=== PATIENT | female | born 1940 | race Caucasian/White ===

== ENCOUNTER 2022-10-11 15:03 | Inpatient (IN) ==
[2022-10-11] MEDS ORDERED: dilTIAZem HCl 5 MG/ML 5 ML VIAL IV STA (15:25)
[2022-10-11] MEDS ORDERED: SODIUM CHLORIDE 0.9% 1000ML 1,000 ML IV ONE (15:25)
--- NOTE | 2022-10-11 15:27 | Emergency Department Note ---
Impression & Plan Atrial fibrillation with rapid ventricular response ADMIT ED Provider Note HPI: The patient is an 82-year-old female who presents the emergency department with a chief complaint of chest pressure and palpitations. Patient states she began experiencing this sensation about 1 hour prior to arrival to the ED. Patient states that she was eating breakfast and she bent over to get her food off the table and she began feeling the sensation of chest "pressure" and as if her heart was racing. She denies any chest pain. On arrival to the ED the patient is noted to be in atrial fibrillation with RVR with heart rates in the 140s. Blood pressure stable, she is saturating well on room air, she otherwise appears to be in no acute distress. ROS: -Cardio: Elevated heart rate, chest pressure *10 point review systems was conducted and is otherwise negative unless stated above *Outpatient medications and allergy history reviewed PE: General: Alert HEENT: Normocephalic, trachea midline Eyes: Extraocular eye movement is intact, no scleral erythema Pulmonary: Clear to auscultation bilaterally, no wheezing Cardio: Tachycardic rate with irregular rhythm GI: Abdomen is soft, nontender : No suprapubic tenderness MSK: No evidence of trauma or malformation of the extremities, no edema Skin: No evidence of rash Neuro: Alert, no focal deficits Psychiatric: Cooperative classroom monitor: - An order was placed for continuous cardiac monitoring - Patient was noted to be in atrial fibrillation with a rate of 146 EKG: Rate: 163 Rhythm: Atrial fibrillation with RVR Intervals: QTC 500 ms, QRS 100 ms, NC indeterminate ST changes: No ST elevation Time: 1514 Interventions provided in ED: -IV diltiazem, IV diltiazem drip, IV fluid bolus, IV metoprolol Medical Decision Making: Patient presented to the emergency department with a sensation of chest pressure and palpitations. She is noted to be in new onset atrial fibrillation with RVR. Blood pressure stable, patient was given an initial bolus of diltiazem with good response into the 120s, patient was then started on a diltiazem drip. Lab work was obtained and patient was maintained on secured entrance monitor, troponin is negative, no critical electrolyte abnormalities are noted. Patient does have a slight elevation in her creatinine to 1.40. On my reassessment on diltiazem drip patient remains with some elevated rates in the 120s, she was given a dose of IV metoprolol and her heart rate did respond well into the 90s. Given that her symptoms and atrial fibrillation are new onset, I did discuss an admission plan with the on-call midlevel provider for [facility], patient will be admitted to a telemetry bed for further management and further work-up. Patient is in agreement to the above plan and she was admitted in stable condition. * CRITICAL CARE TIME: (45) minutes -Stabilization of tachyarrhythmia/atrial fibrillation with RVR requiring IV rate control medications, time spent at the bedside, discussion with other physicians and arrangement of admission Diagnosis: 1. Atrial fibrillation with RVR, new onset 2. Sensation of palpitations 3. Nonspecific chest pressure, acute 4. Creatinine elevation Disposition: Admission Patricio Valladares DO Emergency Medicine Past Med/Surg History Medical History (Updated 10/11/22 @ 18:31 by Patricio Valladares DO) CAD (coronary artery disease) Listed in cardio records > "Normal epicardial coronary arteries" per 2016 cardiac cath CHF (congestive heart failure) follows with Dr. Tidwell CKD (chronic kidney disease), stage III History of gout HLD (hyperlipidemia) HTN (hypertension) Osteoarthritis Renal insufficiency Urinary leakage Valvular heart disease Moderate to severe MR, moderate PI/AI/TR per 02/15/22 echo Repeat echo recommended 02/2023 Surgical History History of bunionectomy x2 History of cardiac catheterization 2015 > no stents History of colonoscopy History of hysterectomy History of intestinal surgery benign tumor History of postoperative nausea History of transesophageal echocardiography (LUIS) Family History (Updated 10/11/22 @ 17:30 by Agnieszka Barber PA-C) Sister Breast cancer Brother Prostate cancer Mother Breast cancer Father Lung cancer Other No family history of adverse response to anesthesia Social History Smoking Status: Never smoker Second Hand Exposure: Yes (hx); Hx Alcohol Use: No Hx Substance Use: No Preferred Language: Mosotho Communication Ability: Effective Cryptographer Required: No Beliefs That Will Affect Care: None Current Living Situation: Alone Feels Safe at Home: Yes Assistive Devices: None Allergies Allergies Allergy/AdvReac Type Severity Reaction Status Date / Time Penicillins Allergy Hives Verified 10/11/22 17:02 spironolactone Allergy blisters Verified 10/11/22 17:02 [From Aldactone] Sulfa (Sulfonamide Allergy Rash Verified 10/11/22 17:02 Antibiotics) Home Meds Home Medications Medication Instructions Recorded Confirmed amiloride 5 mg tablet 5 mg PO HS 07/18/22 10/11/22 aspirin 81 mg tablet,delayed 81 mg PO QAM 07/18/22 10/11/22 release carvedilol 25 mg tablet 25 mg PO BIDM 07/18/22 10/11/22 furosemide 20 mg tablet 20 mg PO DAILY 07/18/22 10/11/22 isosorbide mononitrate 30 mg 30 mg PO DAILY 07/18/22 10/11/22 tablet,extended release 24 hr lisinopril 40 mg tablet 40 mg PO QAM 07/18/22 10/11/22 potassium chloride 10 mEq 10 meq PO DAILY 07/18/22 10/11/22 tablet,extended release terazosin 5 mg capsule 5 mg PO HS 07/18/22 10/11/22 tramadol 50 mg tablet 50 mg PO TID PRN Pain 07/18/22 10/11/22 Fish Oil-[place] -3 Fatty Acids 1 cap PO DAILY 10/11/22 10/11/22 atorvastatin 10 mg tablet 10 mg PO HS 10/11/22 10/11/22 clonidine HCl 0.1 mg tablet 0.1 mg PO DAILY PRN SBP > 170 10/11/22 10/11/22 Results & Data (ED) Vital Signs Vital Signs - 24 hr 10/11/22 15:08 10/11/22 15:25 10/11/22 15:51 Temperature 36.8 C Temperature Source Temporal Artery Scan Pulse Rate 108 H 141 H Pulse Rate [Apical] Respiratory Rate 18 20 Blood Pressure 117/68 Blood Pressure [Right Arm] Blood Pressure Mean 84 Blood Pressure Mean [Right Arm] Pulse Oximetry 95 94 94 Oxygen Delivery Method Room Air Room Air Room Air Sepsis Recent Fever Within 48 Hours No Sepsis New/Unexplained Change in Mental Status No Sepsis Action Taken by Nursing No Action Required 10/11/22 15:51 Temperature Temperature Source Pulse Rate Pulse Rate [Apical] 105 H Respiratory Rate 20 Blood Pressure Blood Pressure [Right Arm] 118/84 Blood Pressure Mean Blood Pressure Mean [Right Arm] 95 Pulse Oximetry 94 Oxygen Delivery Method Room Air Sepsis Recent Fever Within 48 Hours Sepsis New/Unexplained Change in Mental Status Sepsis Action Taken by Nursing Laboratory Data Result diagrams: 10/11/22 15:34 10/11/22 15:34 Lab Results 10/11/22 10/11/22 10/11/22 Range/Units 15:34 15:34 15:34 WBC 7.93 (4.8-10.8) K/ul RBC 4.08 (3.93-5.22) M/uL Hgb 12.8 (12.0-16.0) g/dl Hct 37.7 (34.1-44.9) % MCV 92.4 (80.0-100.0) fL MCH 31.4 (25.0-34.0) pg MCHC 34.0 (32.0-36.0) g/dL RDW Std Deviation 41.5 (36.4-46.3) fL RDW Coeff of [place] 12.1 (11.5-14.5) % Plt Count 188 (130-400) K/uL MPV 10.8 (9.4-12.3) fL Immature Gran % (Auto) 0.1 % Neut % (Auto) 61.8 % Lymph % (Auto) 24.8 % [place] % (Auto) 7.3 % Eos % (Auto) 5.7 % Baso % (Auto) 0.3 % Neut # (Auto) 4.90 (1.4-6.5) K/uL Lymph # (Auto) 1.97 (1.2-3.4) K/uL [place] # (Auto) 0.58 (0.24-0.82) K/uL Eos # (Auto) 0.45 (0-0.50) K/uL Baso # (Auto) 0.02 (0-0.2) K/uL Immature Gran # (Auto) 0.01 (0.00-0.02) K/uL PT 11.4 (9.0-12.0) Seconds INR 1.1 (0.9-1.1) APTT 27.0 (21.0-31.0) Seconds PTT Ratio 1.0 Sodium 139 (136-145) mmol/L Potassium 3.6 (3.5-5.1) mmol/L Chloride 104 (98-107) mmol/L Carbon Dioxide 27 (21-32) mmol/L Anion Gap 8 (3-11) BUN 23 (6-23) mg/dl Creatinine 1.40 H (0.6-1.2) mg/dl Est Cr Clr Drug Dosing 27.2 ml/min Est GFR ( Amer) 40.7 ml/min Est GFR (Non-Af Amer) 35.1 ml/min BUN/Creatinine Ratio 16.4 (10-20) Glucose 150 H (70-99(Fasting)) mg/dl Calcium 8.8 (8.5-10.1) mg/dl Magnesium 2.0 (1.7-2.4) mg/dl Total Bilirubin 0.4 (0.2-1.0) mg/dl AST 20 (13-39) U/L ALT 13 (7-52) U/L Alkaline Phosphatase 66 (34-104) U/L Troponin I High Sens 13.5 (0-14) pg/ml Total Protein 6.6 (6.0-8.3) gm/dl Albumin 3.8 (3.4-5.0) gm/dl Globulin 2.8 (2.5-4.0) gm/dl Albumin/Globulin Ratio 1.4 (0.9-2) TSH (0.300-4.500) uIu/ml SARS-CoV-2, RNA, NAAT (NEGATIVE) 10/11/22 10/11/22 Range/Units 15:34 16:51 WBC (4.8-10.8) K/ul RBC (3.93-5.22) M/uL Hgb (12.0-16.0) g/dl Hct (34.1-44.9) % MCV (80.0-100.0) fL MCH (25.0-34.0) pg MCHC (32.0-36.0) g/dL RDW Std Deviation (36.4-46.3) fL RDW Coeff of [place] (11.5-14.5) % Plt Count (130-400) K/uL MPV (9.4-12.3) fL Immature Gran % (Auto) % Neut % (Auto) % Lymph % (Auto) % [place] % (Auto) % Eos % (Auto) % Baso % (Auto) % Neut # (Auto) (1.4-6.5) K/uL Lymph # (Auto) (1.2-3.4) K/uL [place] # (Auto) (0.24-0.82) K/uL Eos # (Auto) (0-0.50) K/uL Baso # (Auto) (0-0.2) K/uL Immature Gran # (Auto) (0.00-0.02) K/uL PT (9.0-12.0) Seconds INR (0.9-1.1) APTT (21.0-31.0) Seconds PTT Ratio Sodium (136-145) mmol/L Potassium (3.5-5.1) mmol/L Chloride (98-107) mmol/L Carbon Dioxide (21-32) mmol/L Anion Gap (3-11) BUN (6-23) mg/dl Creatinine (0.6-1.2) mg/dl Est Cr Clr Drug Dosing ml/min Est GFR ( Amer) ml/min Est GFR (Non-Af Amer) ml/min BUN/Creatinine Ratio (10-20) Glucose (70-99(Fasting)) mg/dl Calcium (8.5-10.1) mg/dl Magnesium (1.7-2.4) mg/dl Total Bilirubin (0.2-1.0) mg/dl AST (13-39) U/L ALT (7-52) U/L Alkaline Phosphatase (34-104) U/L Troponin I High Sens (0-14) pg/ml Total Protein (6.0-8.3) gm/dl Albumin (3.4-5.0) gm/dl Globulin (2.5-4.0) gm/dl Albumin/Globulin Ratio (0.9-2) TSH 3.013 (0.300-4.500) uIu/ml SARS-CoV-2, RNA, NAAT NEGATIVE (NEGATIVE) Administered Medications Diltiazem HCl 125 mg/ Dextrose 125 mls @ 5 mls/hr IV .Q24H [facility]; Protocol Stop: 11/10/22 15:59 Last Admin: 10/11/22 16:27 Dose: 5 mg/hr, 5 mls/hr Documented By: SIRIA Co-signed By: QGV Discontinued Medications Aspirin (Aspirin Chew 324 Mg) 324 mg PO NOW STA Stop: 10/11/22 16:46 Last Admin: 12/02/22 17:03 Dose: 324 mg Documented By: QGV Diltiazem HCl (Diltiazem Hcl 5 Mg/Ml 5 Ml Vial) 15 mg IV NOW STA Stop: 10/11/22 15:26 Last Admin: 10/11/22 15:36 Dose: 15 mg Documented By: QGV Co-signed By: SHERYL Sodium Chloride (Nss 1000ml) 1,000 mls @ 999 mls/hr IV .Q1H1M ONE Stop: 10/11/22 16:25 Last Infusion: 10/11/22 16:27 Dose: 0 mls/hr Documented By: Admin: 10/11/22 15:38 Dose: 999 mls/hr Documented By: QGV Miscellaneous (Stat Iv Infusion Titration Per Protocol) 1 each N/A NOW STA Stop: 10/11/22 15:57 Last Admin: 10/11/22 17:04 Dose: 1 each Documented By: QGV Imaging Data Radiologist's Impression: Chest X-Ray 10/11/22 15:11 SINGLE VIEW CHEST CLINICAL HISTORY: Atypical chest pain. FINDINGS: An AP, portable, upright chest radiograph is compared to study dated 08/02/2022. The heart is enlarged noting atherosclerotic calcification of the thoracic aorta. The pulmonary vasculature is noncongested. Chronic interstitial thickening is similar to previous. The lungs and pleural spaces are clear noting mild bibasilar scarring/atelectasis. No pneumothorax is seen. The skeletal structures are osteopenic. The bony thorax is grossly intact. Degenerative change and scoliosis is seen in the thoracic spine. IMPRESSION: Cardiomegaly with no active disease in the chest. ACT 112: Negative or not required by law. Electronically signed by: Domenic Syed M.D. 10/11/2022 3:53 PM Discharge Plan Visit Data Chief Complaint: Chest Pain Stated Complaint: CHEST PAIN, JAW PAIN, WEAKNESS ED Provider: Patricio Valladares Discharge Problem: Atrial fibrillation with rapid ventricular response Patient Disposition: Admitted As Inpatient Forms Stand Alone Forms: [facility] Prescriptions Prescriptions: No Action terazosin 5 mg Capsule 5 mg PO HS carvedilol 25 mg Tablet 25 mg PO BIDM Rx Instructions: must administer with a meal/food isosorbide mononitrate 30 mg Tablet Extended Release 24 Hr 30 mg PO DAILY Rx Instructions: Takes at 2pm potassium chloride 10 mEq Tablet Extended Release 10 meq PO DAILY Rx Instructions: takes at 2pm aspirin [Aspir-81] 81 mg Tablet,Delayed Release (Dr/Ec) 81 mg PO QAM tramadol 50 mg Tablet 50 mg PO TID PRN (Reason: Pain) amiloride 5 mg Tablet 5 mg PO HS furosemide 20 mg Tablet 20 mg PO DAILY Rx Instructions: takes at 2pm lisinopril 40 mg Tablet 40 mg PO QAM atorvastatin 10 mg Tablet 10 mg PO HS Fish Oil-[place] -3 Fatty Acids 1 cap PO DAILY Rx Instructions: 3600-1,200 mg clonidine HCl 0.1 mg Tablet 0.1 mg PO DAILY PRN (Reason: SBP > 170) Referrals Referrals: Markell Andres M.D. [Primary Care Provider] -
[2022-10-11 15:54] LABS: Basophils # (auto) 0.02 K/uL (0-0.2); Basophils % (auto) 0.3 %; Eosinophils # (auto) 0.45 K/uL (0-0.50); Eosinophils % (auto) 5.7 %; Hematocrit (blood only) 37.7 % (34.1-44.9); Hemoglobin 12.8 g/dl (12.0-16.0); Immature Granulocytes # (auto) 0.01 K/uL (0.00-0.02); Immature Granulocytes % (auto) 0.1 %; Lymphocytes # (auto) 1.97 K/uL (1.2-3.4); Lymphocytes % (auto) 24.8 %; Mean Corpuscular Hemoglobin 31.4 pg (25.0-34.0); Mean Corpuscular Volume 92.4 fL (80.0-100.0); Mean Platelet Volume 10.8 fL (9.4-12.3); Monocytes # (auto) 0.58 K/uL (0.24-0.82); Monocytes % (auto) 7.3 %; Neutrophils % (auto) 61.8 %; Platelet Count 188 K/uL (130-400); RDW Coefficient of Variation 12.1 % (11.5-14.5); RDW Standard Deviation 41.5 fL (36.4-46.3); Red Blood Count 4.08 M/uL (3.93-5.22); White Blood Count 7.93 K/ul (4.8-10.8)
--- NOTE | 2022-10-11 15:54 | XRay Report ---
SINGLE VIEW CHEST CLINICAL HISTORY: Atypical chest pain. FINDINGS: An AP, portable, upright chest radiograph is compared to study dated 08/02/2022. The heart i s enlarged noting atherosclerotic calcification of the thoracic aorta. The pulmonary vasculature is n oncongested. Chronic interstitial thickening is similar to previous. The lungs and pleural spaces are clear noting mild bibasilar scarring/atelectasis. No pneumothorax is seen. The skeletal structures a re osteopenic. The bony thorax is grossly intact. Degenerative change and scoliosis is seen in the th oracic spine. IMPRESSION: Cardiomegaly with no active disease in the chest. ACT 112: Negative or not required by law. Electronically signed by: Domenic Syed M.D. 10/11/2022 3:53 PM
[2022-10-11] MEDS ORDERED: STAT IV Infusion **Titration per Protocol STA (15:56)
[2022-10-11] MEDS ORDERED: dilTIAZem HCL 125 MG in DEXTROSE 5% 100 ML IV SCH (16:00)
[2022-10-11 16:07] LABS: INR 1.1 (0.9-1.1); Prothrombin Time 11.4 Seconds (9.0-12.0)
[2022-10-11 16:21] LABS: Albumin Globulin Ratio 1.4 (0.9-2); Albumin Level 3.8 gm/dl (3.4-5.0); BUN Creatinine Ratio 16.4 (10-20); Bilirubin,Total 0.4 mg/dl (0.2-1.0); Calcium 8.8 mg/dl (8.5-10.1); Creatinine Clr Calc Pharmacy 27.2 ml/min; Est GFR (African American) 40.7 ml/min; Est GFR (Non-African American) 35.1 ml/min; Globulin 2.8 gm/dl (2.5-4.0); Potassium 3.6 mmol/L (3.5-5.1); Total Protein 6.6 gm/dl (6.0-8.3)
[2022-10-11 16:23] LABS: Troponin I High Sensitivity 13.5 pg/ml (0-14)
[2022-10-11] MEDS ORDERED: METOPROLOL TARTRATE 1 MG/ML VIAL IV STA (16:38)
[2022-10-11] MEDS ORDERED: ASPIRIN CHEW 324 MG PO STA (16:45)
--- NOTE | 2022-10-11 17:11 | History & Physical Report ---
Date of Service October 11, 2022 Assessment & Plan (1) Atrial fibrillation with RVR: Plan: Patient is 82-year-old female with PMH CAD, chronic combined CHF, nonrheumatic mitral valve insufficiency, aortic valve insufficiency, HTN, HLD, CKD III, gout presented to ER with complaint of onset of chest discomfort, jaw discomfort, palpitations and weakness this afternoon. In ER found to be in atrial fibrillation RVR with rate up to 160's, BP stable. No leukocytosis, Initial troponin: 13.5. TSH WNL In ER was given Cardizem bolus and drip, 1 dose of Lopressor 5 mg IV with improvement of heart rate down into the 70s. Patient reports resolution of chest, jaw discomfort, palpitations and generalized weakness. Trend troponin Echo IV heparin On carvedilol at home. will continue for now Cardiology consult (2) CKD (chronic kidney disease), stage III: Plan: Cr: 1.4. Baseline ~1.3 Monitor renal functions, avoid nephrotoxic agents when possible (3) CAD (coronary artery disease): Plan: Reported recent cardiac cath. Patient reports has "normal". Completed at [facility] in [place], [place] Follows with Dr. Tidwell in [place] Continue aspirin, carvedilol, isosorbide (4) CHF (congestive heart failure): Plan: Chronic systolic, diastolic heart failure Echo 02/15/2022: EF: 40-45%, grade 2 diastolic dysfunction Currently appears euvolemic Continue Lasix (5) Valvular heart disease: Plan: Echo 02/2022: Moderate-severe mitral regurgitation, moderate pulmonic insufficiency, moderate aortic insufficiency, moderate tricuspid regurgitation (6) HTN (hypertension): Plan: Continue carvedilol, lisinopril, amiloride, terazosin (7) HLD (hyperlipidemia): Plan: Continue atorvastatin DVT Prophylaxis On Heparin IV Full Code as per discussion with pt Follows with Dr Markell Andres in [place], [place] for routine care Pt was seen and care coordinated with Dr Fraire. See addendum History of Present Illness Chief Complaint: Chest discomfort Primary Care Provider: Markell Andres Patient is 82-year-old female with PMH CAD, chronic combined CHF, nonrheumatic mitral valve insufficiency, aortic valve insufficiency, HTN, HLD, CKD III, gout presented to ER with complaint of chest discomfort. Patient states for lunch ate a pancake and was cleaning up the table and leaned over and had sudden onset of pain to teeth and jaw and chest pressure. Also reports palpitations, generalized weakness. She states took two 81mg aspirin prior to arrival. 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 Patient denies prior diagnosis of atrial fibrillation. She reports 1 year ago had episode of similar symptoms with palpitations, chest pressure that occurred while shopping and lasted approximately 12 hours and self resolved. Patient did not seek evaluation at that time. 10/01/22 started with sore throat, nasal congestion, rhinorrhea, non- productive cough, weakness and fatigue. Didn't notice any fever or chills. Took Benadryl once and Coricidin once. Symptoms lasted 4 days and resolved. took home COVID-19 test that was negative. Reports improvements of symptoms and now only has slight cough. Report had cardiac cath 3 weeks ago at [facility] in [place], [place]. Patient reports cardiac cath was "good" and no intervention was needed. 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 Denies fever/chills, diaphoresis, N/V/D/C, BENITEZ, dizziness, syncope, vision changes, orthopnea, hemoptysis, choking, otalgia, abdominal pain, paresthesias, extremity edema, rashes, urinary symptoms, history of falls. Allergies Allergy/AdvReac Type Severity Reaction Status Date / Time Penicillins Allergy Hives Verified 10/11/22 17:02 spironolactone Allergy blisters Verified 10/11/22 17:02 [From Aldactone] Sulfa (Sulfonamide Allergy Rash Verified 10/11/22 17:02 Antibiotics) Home Medications Medication Instructions Recorded Confirmed Type amiloride 5 mg tablet 5 mg PO HS 07/18/22 10/11/22 History aspirin 81 mg tablet,delayed 81 mg PO QAM 07/18/22 10/11/22 History release carvedilol 25 mg tablet 25 mg PO BIDM 07/18/22 10/11/22 History furosemide 20 mg tablet 20 mg PO DAILY 07/18/22 10/11/22 History isosorbide mononitrate 30 mg 30 mg PO DAILY 07/18/22 10/11/22 History tablet,extended release 24 hr lisinopril 40 mg tablet 40 mg PO QAM 07/18/22 10/11/22 History potassium chloride 10 mEq 10 meq PO DAILY 07/18/22 10/11/22 History tablet,extended release terazosin 5 mg capsule 5 mg PO HS 07/18/22 10/11/22 History tramadol 50 mg tablet 50 mg PO TID PRN Pain 07/18/22 10/11/22 History Fish Oil-[place] -3 Fatty Acids 1 cap PO DAILY 10/11/22 10/11/22 History atorvastatin 10 mg tablet 10 mg PO HS 10/11/22 10/11/22 History clonidine HCl 0.1 mg tablet 0.1 mg PO DAILY PRN SBP > 170 10/11/22 10/11/22 History Past Med/Surg History Medical History CAD (coronary artery disease) Listed in cardio records > "Normal epicardial coronary arteries" per 2016 cardiac cath CHF (congestive heart failure) follows with Dr. Tidwell CKD (chronic kidney disease), stage III History of gout HLD (hyperlipidemia) HTN (hypertension) Osteoarthritis Renal insufficiency Urinary leakage Valvular heart disease Moderate to severe MR, moderate PI/AI/TR per 02/15/22 echo Repeat echo recommended 02/2023 Surgical History History of bunionectomy x2 History of cardiac catheterization 2015 > no stents History of colonoscopy History of hysterectomy History of intestinal surgery benign tumor History of postoperative nausea History of transesophageal echocardiography (LUIS) Family History Sister Breast cancer Brother Prostate cancer Mother Breast cancer Father Lung cancer Other No family history of adverse response to anesthesia Social History Smoking Status: Never smoker Second Hand Exposure: Yes (hx); Hx Alcohol Use: No Hx Substance Use: No Preferred Language: Vietnamese Communication Ability: Effective Chemist Internship Required: No Beliefs That Will Affect Care: None Current Living Situation: Alone Feels Safe at Home: Yes Assistive Devices: None Review of Systems Review of Systems: All systems reviewed & are unremarkable except as noted in HPI & below Physical Exam Physical Exam: General: no distress, WDWN Head: normocephalic, atraumatic Eyes: conjunctiva non-injected, anicteric ENT: normal inspection external ears, nose, mucous membranes moist Neck: supple, trachea midline Lungs: clear, no respiratory distress, no wheezing/rhonchi/rales CV: Irregularly irregular, rate 78, + murmur, trace pretibial edema Abd: normal BS, soft, non-tender Ext: no cyanosis, no calf tenderness Neuro: A&O x 3, no focal deficits noted, normal affect Skin: warm, dry Results & Data Results & Data ([facility]) Vital Signs (Past 12 Hours) Vital Signs Temp Pulse Pulse Resp BP BP Pulse Ox 10/11/22 15:51 105 H 20 118/84 94 10/11/22 15:51 94 10/11/22 15:25 141 H 20 94 10/11/22 15:08 36.8 C 108 H 18 117/68 95 O2 Del Method 10/11/22 15:51 Room Air 10/11/22 15:51 Room Air 10/11/22 15:25 Room Air 10/11/22 15:08 Room Air Laboratory Results Short CBC 10/11/22 Range/Units 15:34 WBC 7.93 (4.8-10.8) K/ul Hgb 12.8 (12.0-16.0) g/dl Hct 37.7 (34.1-44.9) % Plt Count 188 (130-400) K/uL BMP 10/11/22 15:34 Sodium 139 Potassium 3.6 Chloride 104 Carbon Dioxide 27 BUN 23 Creatinine 1.40 H Glucose 150 H Calcium 8.8 Liver Function 10/11/22 Range/Units 15:34 Total Bilirubin 0.4 (0.2-1.0) mg/dl AST 20 (13-39) U/L ALT 13 (7-52) U/L Alkaline Phosphatase 66 (34-104) U/L Albumin 3.8 (3.4-5.0) gm/dl Diagnostic Findings Chest X-Ray 10/11/22 15:11 SINGLE VIEW CHEST CLINICAL HISTORY: Atypical chest pain. FINDINGS: An AP, portable, upright chest radiograph is compared to study dated 08/02/2022. The heart is enlarged noting atherosclerotic calcification of the thoracic aorta. The pulmonary vasculature is noncongested. Chronic interstitial thickening is similar to previous. The lungs and pleural spaces are clear noting mild bibasilar scarring/atelectasis. No pneumothorax is seen. The skeletal structures are osteopenic. The bony thorax is grossly intact. Degenerative change and scoliosis is seen in the thoracic spine. IMPRESSION: Cardiomegaly with no active disease in the chest. ACT 112: Negative or not required by law. Electronically signed by: Domenic Syed M.D. 10/11/2022 3:53 PM ECG Rate (beats per minute): 163 Rhythm: atrial fibrillation Findings: + nonspecific-ST abn Code Status & VTE Plan VTE Prophylaxis Plan VTE Prophylaxis will be ordered: Yes Supervising Physician Co-Signing Physician Notes Care coordinated with Agnieszka Barber PA-C. Agree with above note. Patient seen and examined. Please refer to her notes for full details. Vital signs reviewed. Physical exam: General exam: Alert and oriented. Not in acute distress. CVS: S1 and S2 heard, irregular rhythm, no murmurs. RS: Clear to auscultation, no wheezing or crackles. ABD: Soft, bowel sounds present, nontender, no distention. COMIC BOOK DESIGNER: Nonfocal. EXT: No edema, no erythema. Labs: Reviewed. Assessment and plan: 82F with hx of CAD, CHF,CKD, HTN presents with rapid a fib. Rosanna was leaning to clean when she felt pressure in her teeth then jaw and in chest and felt heart racing. In the er she was found to be in rapid afib. Started on cardizem drip also received iv lopressor. Currently heart rates in 60's. Currently she is completely asymptomatic. Resting comfortable.Patient says 3 weeks ago she had cardiac cath as she cannot have stress test for pre op for knee surgery and was told she can have surgery. RApid a fib continue coreg HR currently in 60's can hold cardizem drip and monitor started on iv heparin cardiology consult in [place] 'tele monitoring Chronic systolic and diastolic chf on coreg amiloride, lasix, lisnopril and imdur recent echo 02/2022 EF 40-45% and grade 2 diastolic dysfunction and Moderate to severe mitral regurgitation, moderate pulmonary insufficiency, moderate aortic and tricupsid regurgitation will monitor for volume overload Other diagnosis and plan of care as per LIBBY Porter MD.
[2022-10-11] MEDS ORDERED: Heparin IV Adult Wt-Based Low-Dose *NO* Bolus Protocol IV SCH (17:40)
[2022-10-11] MEDS ORDERED: HEPARIN SODIUM/DEXTROSE 25,000 UNITS/500 ML BAG IV SCH (17:45)
[2022-10-11] MEDS ORDERED: POLYETHYLENE (MIRALAX) 17 GM PACK PO PRN (19:36)
[2022-10-11] MEDS ORDERED: ONDANSETRON INJ 2 MG/ML 2 ML VIAL IV PRN (19:36)
[2022-10-11] MEDS ORDERED: MAGNESIUM HYDROXIDE SUSP 30 ML UDC PO PRN (19:36)
[2022-10-11] MEDS ORDERED: ACETAMINOPHEN 325 MG TAB PO PRN (19:36)
--- NOTE | 2022-10-11 20:14 | Electrocardiogram Report ---
Test Reason : Blood Pressure : / mmHG Vent. Rate : 163 BPM Atrial Rate : 147 BPM P-R Int : 000 ms QRS Dur : 100 ms QT Int : 304 ms P-R-T Axes : 000 -40 138 degrees QTc Int : 500 ms Atrial fibrillation with rapid ventricular response Left axis deviation Moderate voltage criteria for LVH, may be normal variant Marked ST abnormality, possible lateral subendocardial injury Abnormal ECG No previous ECGs available Confirmed by Talib Dai ([id number]) on 10/11/2022 8:14:36 PM Referred By: Confirmed By:Nish Dai
[2022-10-11] MEDS ORDERED: TERAZOSIN HCL 5 MG CAP PO SCH (21:00)
[2022-10-11] MEDS ORDERED: ATORVASTATIN 10 MG TAB PO SCH (21:00)
[2022-10-11] MEDS ORDERED: aMILoride HCL 5 MG TAB PO SCH (21:00)
[2022-10-12 00:58] LABS: Partial Thromboplastin Ratio 1.7
[2022-10-12 00:59] LABS: Partial Thromboplastin Time 45.5 Seconds (21.0-31.0)
[2022-10-12] MEDS ORDERED: POTASSIUM CHLORIDE PWD 20 MEQ PACK PO STA (03:43)
[2022-10-12] MEDS ORDERED: carvediloL 25 MG TAB PO SCH ×2 (03:45→21:00)
[2022-10-12] MEDS ORDERED: Nursing to Pharmacy Communication SCH (04:45)
[2022-10-12 06:56] LABS: Hematocrit (blood only) 34.7 % (34.1-44.9); Hemoglobin 11.7 g/dl (12.0-16.0); Mean Corpuscular Hemoglobin 31.4 pg (25.0-34.0); Mean Corpuscular Hgb Conc 33.7 g/dL (32.0-36.0); Mean Platelet Volume 10.6 fL (9.4-12.3); Platelet Count 183 K/uL (130-400); RDW Coefficient of Variation 12.3 % (11.5-14.5); RDW Standard Deviation 42.3 fL (36.4-46.3); Red Blood Count 3.73 M/uL (3.93-5.22); White Blood Count 8.66 K/ul (4.8-10.8)
[2022-10-12 07:40] LABS: BUN Creatinine Ratio 16.8 (10-20); Calcium 8.6 mg/dl (8.5-10.1); Creatinine Clr Calc Pharmacy 38.5 ml/min; Est GFR (African American) 56.4 ml/min; Est GFR (Non-African American) 48.6 ml/min; Partial Thromboplastin Ratio 2.1; Potassium 4.6 mmol/L (3.5-5.1)
[2022-10-12 07:43] LABS: Partial Thromboplastin Time 57.3 Seconds (21.0-31.0)
[2022-10-12] MEDS ORDERED: lisinopril 40 MG TAB PO SCH (09:00)
[2022-10-12] MEDS ORDERED: ASPIRIN 81 MG ECTAB PO SCH (09:00)
[2022-10-12] MEDS ORDERED: ISOSORBIDE MONO EXTENDED REL 30 MG TABCR PO SCH (09:00)
[2022-10-12] MEDS ORDERED: POTASSIUM CHLORIDE 10 MEQ TABCR PO SCH (09:00)
[2022-10-12] MEDS ORDERED: FUROSEMIDE 20 MG TAB PO SCH (09:00)
--- NOTE | 2022-10-12 12:43 | Cardiology Consultation ---
Date of Consultation October 12, 2022 Assessment & Plan (1) Paroxysmal atrial fibrillation with rapid ventricular response: (2) Nonischemic cardiomyopathy: (3) HTN (hypertension): (4) Valvular heart disease: (5) Elevated troponin: Plan Patient is a an 82-year-old female closely followed by cardiology, Dr. Diann Solomon who presents with new onset atrial fibrillation with rapid response with spontaneous conversion with medical therapies. Currently asymptomatic issues are addressed as follows 1. Paroxysmal atrial fibrillation: Recommend increasing carvedilol to 37.5 mg a.m. 25 mg p.m., additional 12.5 mg p.o. given today. Patient with [id number] score of 5. 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 Elevated troponin: Secondary to demand of elevated heart rate. Coronary angiography in the past month without obstructive disease 3. Nonischemic cardiomyopathy with moderate LV dysfunction: Patient on guideline directed optimal medical regimen. Could consider use of Entresto if heart failure develops 4. Hypertension: On appropriate therapies as above. Would recommend follow-up with primary cardiology 1 to 2 weeks. Stable for discharge today History of Present Illness Reason for Consultation: Paroxysmal atrial fibrillation Requesting Physician: Dr. Vega Attending Physician: Reid Vega MD History of Present Illness Patient is a an 82-year-old female who presented to the emergency room last evening with symptoms of chest pains tachypalpitations and was found to be in atrial fibrillation with rapid response. Patient was treated with medical therapies with spontaneous conversion to sinus rhythm she is referred now for further evaluation. Ongoing issues include 1. Paroxysmal atrial fibrillation new onset 2. Nonischemic cardiomyopathy status post coronary angiography approximately 3 weeks ago per patient 3. Hypertension 4. Hyperlipidemia on therapy Patient this morning without complaint. Notes was working in her garden and developed sudden onset symptoms of pressure in chest jaw neck and throat with tachypalpitations. No prior history of atrial arrhythmias. He is being followed by cardiology for nonischemic cardiomyopathy with most recent coronary angiography in the last month. Denies history of TIA or stroke. No signs or symptoms of congestive heart failure. Blood pressures are labile per patient but generally trending towards control. No fevers chills or unexplained infections. Patient on guideline directed optimal medical regimen for underlying cardiac issues EKG during atrial fibrillation: Atrial fibrillation with rapid ventricular response, rate 163 bpm, voltage criteria for left ventricular hypertrophy with lateral ST depression EKG postconversion: Sinus rhythm rate [address] depression Allergies Allergy/AdvReac Type Severity Reaction Status Date / Time Penicillins Allergy Hives Verified 10/11/22 17:02 spironolactone Allergy blisters Verified 10/11/22 17:02 [From Aldactone] Sulfa (Sulfonamide Allergy Rash Verified 10/11/22 17:02 Antibiotics) Home Medications Medication Instructions Recorded Confirmed Type amiloride 5 mg tablet 5 mg PO HS 07/18/22 10/11/22 History aspirin 81 mg tablet,delayed 81 mg PO QAM 07/18/22 10/11/22 History release carvedilol 25 mg tablet 25 mg PO BIDM 07/18/22 10/11/22 History furosemide 20 mg tablet 20 mg PO DAILY 07/18/22 10/11/22 History isosorbide mononitrate 30 mg 30 mg PO DAILY 07/18/22 10/11/22 History tablet,extended release 24 hr lisinopril 40 mg tablet 40 mg PO QAM 07/18/22 10/11/22 History potassium chloride 10 mEq 10 meq PO DAILY 07/18/22 10/11/22 History tablet,extended release terazosin 5 mg capsule 5 mg PO HS 07/18/22 10/11/22 History tramadol 50 mg tablet 50 mg PO TID PRN Pain 07/18/22 10/11/22 History Fish Oil-[place] -3 Fatty Acids 1 cap PO DAILY 10/11/22 10/11/22 History atorvastatin 10 mg tablet 10 mg PO HS 10/11/22 10/11/22 History clonidine HCl 0.1 mg tablet 0.1 mg PO DAILY PRN SBP > 170 10/11/22 10/11/22 History Patient History Medical History CAD (coronary artery disease) Listed in cardio records > "Normal epicardial coronary arteries" per 2016 cardiac cath CHF (congestive heart failure) follows with Dr. Tidwell CKD (chronic kidney disease), stage III History of gout HLD (hyperlipidemia) HTN (hypertension) Osteoarthritis Renal insufficiency Urinary leakage Valvular heart disease Moderate to severe MR, moderate PI/AI/TR per 02/15/22 echo Repeat echo recommended 02/2023 Surgical History History of bunionectomy x2 History of cardiac catheterization 2016 > no stents History of colonoscopy History of hysterectomy History of intestinal surgery benign tumor History of postoperative nausea History of transesophageal echocardiography (LUIS) Family History Sister Breast cancer Brother Prostate cancer Mother Breast cancer Father Lung cancer Other No family history of adverse response to anesthesia Social History Smoking Status: Never smoker Second Hand Exposure: No; Do You Dip or Chew Tobacco: No; Tobacco Cessation Education Requested by Patient: No Hx Alcohol Use: No Hx Substance Use: No Preferred Language: Mauritian Communication Ability: Effective Aquatics Coordinator Required: No Beliefs That Will Affect Care: None Current Living Situation: Alone Other Information That Helps Us Care for You: No Feels Safe at Home: Yes Safety Concerns: Feels Safe At This Time Assistive Devices: None Review of Systems Review of Systems: All systems reviewed & are unremarkable except as noted in HPI & below Physical Exam Constitutional: WD/WN, vitals as above Eyes: PERRL, conjunctivae normal, anicteric sclerae ENMT: external ear and nose normal, oropharynx normal Neck: trachea midline, no thyromegaly Respiratory: normal respiratory effort, lungs clear to auscultation Cardiovascular: Rate/Rhythm: regular rate and regular rhythm Heart Sounds: normal S1, normal S2 and + murmur (Grade 1/6 systolic murmur at apex) Vessels: no JVD Extremities: no edema Gastrointestinal (Abdomen): normal bowel sounds, soft, nontender, no hepatosplenomegaly Musculoskeletal: no cyanosis or clubbing, extremities motor strength 5/5 Skin: no rashes, warm and dry Psychiatric: A+Ox3, euthymic affect Results & Data ([facility]) Vital Signs (Past 12 Hours) Vital Signs Temp Pulse Pulse Resp BP Pulse Ox O2 Del Method 10/12/22 11:55 36.8 C 66 18 160/84 H 91 Room Air 10/12/22 07:45 37.0 C 62 17 158/76 H 93 Room Air 10/12/22 07:00 61 10/12/22 04:23 36.8 C 62 20 152/67 H 92 Room Air Laboratory Results Laboratory Results - last 24 hr 10/11/22 10/11/22 10/11/22 15:34 15:34 15:34 WBC 7.93 RBC 4.08 Hgb 12.8 Hct 37.7 MCV 92.4 MCH 31.4 MCHC 34.0 RDW Std Deviation 41.5 RDW Coeff of [place] 12.1 Plt Count 188 MPV 10.8 Immature Gran % (Auto) 0.1 Neut % (Auto) 61.8 Lymph % (Auto) 24.8 [place] % (Auto) 7.3 Eos % (Auto) 5.7 Baso % (Auto) 0.3 Neut # (Auto) 4.90 Lymph # (Auto) 1.97 [place] # (Auto) 0.58 Eos # (Auto) 0.45 Baso # (Auto) 0.02 Immature Gran # (Auto) 0.01 PT 11.4 INR 1.1 APTT 27.0 PTT Ratio 1.0 Sodium 139 Potassium 3.6 Chloride 104 Carbon Dioxide 27 Anion Gap 8 BUN 23 Creatinine 1.40 H Est Cr Clr Drug Dosing 27.2 Est GFR ( Amer) 40.7 Est GFR (Non-Af Amer) 35.1 BUN/Creatinine Ratio 16.4 Glucose 150 H Calcium 8.8 Magnesium 2.0 Total Bilirubin 0.4 AST 20 ALT 13 Alkaline Phosphatase 66 Troponin I High Sens 13.5 Total Protein 6.6 Albumin 3.8 Globulin 2.8 Albumin/Globulin Ratio 1.4 TSH SARS-CoV-2, RNA, NAAT 10/11/22 10/11/22 10/11/22 15:34 16:51 20:58 WBC RBC Hgb Hct MCV MCH MCHC RDW Std Deviation RDW Coeff of [place] Plt Count MPV Immature Gran % (Auto) Neut % (Auto) Lymph % (Auto) [place] % (Auto) Eos % (Auto) Baso % (Auto) Neut # (Auto) Lymph # (Auto) [place] # (Auto) Eos # (Auto) Baso # (Auto) Immature Gran # (Auto) PT INR APTT PTT Ratio Sodium Potassium Chloride Carbon Dioxide Anion Gap BUN Creatinine Est Cr Clr Drug Dosing Est GFR ( Amer) Est GFR (Non-Af Amer) BUN/Creatinine Ratio Glucose Calcium Magnesium Total Bilirubin AST ALT Alkaline Phosphatase Troponin I High Sens 74.3 H* D Total Protein Albumin Globulin Albumin/Globulin Ratio TSH 3.013 SARS-CoV-2, RNA, NAAT NEGATIVE 10/12/22 10/12/22 10/12/22 00:17 00:17 06:47 WBC 8.66 RBC 3.73 L Hgb 11.7 L Hct 34.7 MCV 93.0 MCH 31.4 MCHC 33.7 RDW Std Deviation 42.3 RDW Coeff of [place] 12.3 Plt Count 183 MPV 10.6 Immature Gran % (Auto) Neut % (Auto) Lymph % (Auto) [place] % (Auto) Eos % (Auto) Baso % (Auto) Neut # (Auto) Lymph # (Auto) [place] # (Auto) Eos # (Auto) Baso # (Auto) Immature Gran # (Auto) PT INR APTT 45.5 H* PTT Ratio 1.7 Sodium Potassium Chloride Carbon Dioxide Anion Gap BUN Creatinine Est Cr Clr Drug Dosing Est GFR ( Amer) Est GFR (Non-Af Amer) BUN/Creatinine Ratio Glucose Calcium Magnesium Total Bilirubin AST ALT Alkaline Phosphatase Troponin I High Sens 68.1 H* Total Protein Albumin Globulin Albumin/Globulin Ratio TSH SARS-CoV-2, RNA, NAAT 10/12/22 10/12/22 10/12/22 06:47 06:47 09:02 WBC RBC Hgb Hct MCV MCH MCHC RDW Std Deviation RDW Coeff of [place] Plt Count MPV Immature Gran % (Auto) Neut % (Auto) Lymph % (Auto) [place] % (Auto) Eos % (Auto) Baso % (Auto) Neut # (Auto) Lymph # (Auto) [place] # (Auto) Eos # (Auto) Baso # (Auto) Immature Gran # (Auto) PT INR APTT 57.3 H* PTT Ratio 2.1 Sodium 141 Potassium 4.6 D Chloride 112 H Carbon Dioxide 25 Anion Gap 4 BUN 18 Creatinine 1.07 D Est Cr Clr Drug Dosing 38.5 Est GFR ( Amer) 56.4 Est GFR (Non-Af Amer) 48.6 BUN/Creatinine Ratio 16.8 Glucose 93 Calcium 8.6 Magnesium Total Bilirubin AST ALT Alkaline Phosphatase Troponin I High Sens 41.5 H D Total Protein Albumin Globulin Albumin/Globulin Ratio TSH SARS-CoV-2, RNA, NAAT Diagnostic Findings Echocardiogram 10/12/2022: Moderate diffuse hypokinesis EF 35 to 40% with moderate mitral insufficiency, left atrial enlargement
[2022-10-12] MEDS ORDERED: carvediloL 12.5 MG TAB PO ONE (13:15)
--- NOTE | 2022-10-12 14:03 | Hospitalist Progress Note ---
Date of Service October 12, 2022 Assessment & Plan (1) Atrial fibrillation with RVR: Plan: Patient is an 82 yr female with H/O CAD, chronic combined CHF, nonrheumatic mitral valve insufficiency, aortic valve insufficiency, HTN, HLD, CKD III, gout presented to ER with complaint of onset of chest discomfort, jaw discomfort, palpitations and weakness this afternoon. Atrial fibrillation with RVR Mild Troponin elevation-demand ischemia due to above -TSH WNL --ECHO: Left ventricle is normal in size. Moderate concentric LVH. Moderate global hypokinesis of left ventricle. EF 35 to 40%. Left atrium is moderately to severely dilated. Diastolic dysfunction, grade 2, consistent with elevated left atrial pressure. Aortic valve sclerosis moderate, without significant aortic valvular stenosis. Mild aortic regurgitation. Moderate to severe mitral regurgitation. Mild tricuspid regurgitation. Right ventricular systolic pressure is moderately elevated at 40 to 50 mmHg. -- Spontaneously converted to sinus rhythm Carvedilol dose increased to 37.5 mg every morning and 25 mg every afternoon IV heparin transition to apixaban 5 mg twice daily Appreciate cardiology input Needs follow-up with cardiology in 1 to 2 weeks. (2) CKD (chronic kidney disease), stage III: Plan: Baseline ~1.3 Cr at baseline Monitor renal function Avoid nephrotoxic agents when possible (3) CAD (coronary artery disease): Plan: Reported recent cardiac cath. Patient reports has "normal". Completed at [facility] in [place], [place] Follows with Dr. Tidwell in [place] Continue aspirin, carvedilol, isosorbide (4) CHF (congestive heart failure): Plan: Chronic systolic, diastolic heart failure Echo as above Currently appears euvolemic Continue Lasix Monitor volume status (5) Valvular heart disease: Plan: Continue home medications (6) HTN (hypertension): Plan: Continue carvedilol, lisinopril, amiloride, terazosin (7) HLD (hyperlipidemia): Plan: Continue atorvastatin DVT Px Apixaban Code Status Full Code Admission and Anticipated Discharge Date Admission Date: October 11, 2022 Subjective Patient is seen and examined at bedside States feeling well today Palpitations, chest discomfort resolved Discussed with cardiology today Denies any dyspnea, dizziness, nausea, abdominal pain Offers no other complaints Review of Systems Review of Systems: All systems reviewed & are unremarkable except as noted in Subjective Physical Exam Physical Exam: Physical Exam: Vitals signs as noted above General Appearance:Moderately built and nourished, no apparent distress Head: normocephalic, Atraumatic Eyes: normal inspection, EOMI Neck: supple, Trachea midline Respiratory/Chest: Normal breath sounds, CTA, No accessory muscle use Cardiovascular: S1, S2, + murmur Abdomen/GI:Soft, Non tender, Bowel sounds present Extremities/Musculoskeletal:normal inspection, no edema Neurologic/Psych:AAOX3, grossly no focal neurological deficits Skin: normal color, warm Results & Data Results & Data ([facility]) Vital Signs (Past 12 Hours) Vital Signs Temp Pulse Pulse Resp BP Pulse Ox O2 Del Method 10/12/22 11:55 36.8 C 66 18 160/84 H 91 Room Air 10/12/22 07:45 37.0 C 62 17 158/76 H 93 Room Air 10/12/22 07:00 61 10/12/22 04:23 36.8 C 62 20 152/67 H 92 Room Air Laboratory Results Short CBC 10/11/22 10/12/22 Range/Units 15:34 06:47 WBC 7.93 8.66 (4.8-10.8) K/ul Hgb 12.8 11.7 L (12.0-16.0) g/dl Hct 37.7 34.7 (34.1-44.9) % Plt Count 188 183 (130-400) K/uL BMP 10/11/22 10/12/22 15:34 06:47 Sodium 139 141 Potassium 3.6 4.6 D Chloride 104 112 H Carbon Dioxide 27 25 BUN 23 18 Creatinine 1.40 H 1.07 D Glucose 150 H 93 Calcium 8.8 8.6 Liver Function 10/11/22 Range/Units 15:34 Total Bilirubin 0.4 (0.2-1.0) mg/dl AST 20 (13-39) U/L ALT 13 (7-52) U/L Alkaline Phosphatase 66 (34-104) U/L Albumin 3.8 (3.4-5.0) gm/dl
[2022-10-12] MEDS ORDERED: APIXABAN 5 MG TABLET PO SCH (14:10)
--- NOTE | 2022-10-12 14:46 | Electrocardiogram Report ---
Test Reason : Blood Pressure : / mmHG Vent. Rate : 061 BPM Atrial Rate : 061 BPM P-R Int : 184 ms QRS Dur : 098 ms QT Int : 464 ms P-R-T Axes : 036 -35 022 degrees QTc Int : 467 ms Normal sinus rhythm Left axis deviation Nonspecific ST and T wave abnormality Abnormal ECG When compared with ECG of 11-OCT-2022 15:14, Significant changes have occurred Confirmed by Leonardo Salvador ([id number]) on 10/12/2022 2:45:51 PM Referred By: REFERRED SELF Confirmed By:Leonardo Salvador
--- NOTE | 2022-10-12 14:48 | Discharge Summary ---
Date of Service October 12, 2022 Admission HPI Per Admitting Provider Patient is 82-year-old female with PMH CAD, chronic combined CHF, nonrheumatic mitral valve insufficiency, aortic valve insufficiency, HTN, HLD, CKD III, gout presented to ER with complaint of chest discomfort. Patient states for lunch ate a pancake and was cleaning up the table and leaned over and had sudden onset of pain to teeth and jaw and chest pressure. Also reports palpitations, generalized weakness. She states took two 81mg aspirin prior to arrival. 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 Patient denies prior diagnosis of atrial fib rillation. She reports 1 year ago had episode of similar symptoms with palpitations, chest pressure that occurred while shopping and lasted approximately 12 hours and self resolved. Patient did not seek evaluation at that time. 10/01/22 started with sore throat, nasal congestion, rhinorrhea, non- productive cough, weakness and fatigue. Didn't notice any fever or chills. Took Benadryl once and Coricidin once. Symptoms lasted 4 days and resolved. took home COVID-19 test that was negative. Reports improvements of symptoms and now only has slight cough. Report had cardiac cath 3 weeks ago at [facility] in [place], [place]. Patient reports cardiac cath was "good" and no intervention was needed. Dr Tidwell is size maker in [place]. Denies fever/chills, diaphoresis, N/V/D/C, BENITEZ, dizziness, syncope, vision changes, orthopnea, hemoptysis, choking, otalgia, abdominal pain, paresthesias, extremity edema, rashes, urinary symptoms, history of falls. Admission Exam Per Admitting Provider Physical Exam Physical Exam: General: no distress, WDWN Head: normocephalic, atraumatic Eyes: conjunctiva non-injected, anicteric ENT: normal inspection external ears, nose, mucous membranes moist Neck: supple, trachea midline Lungs: clear, no respiratory distress, no wheezing/rhonchi/rales CV: Irregularly irregular, rate 78, + murmur, trace pretibial edema Abd: normal BS, soft, non-tender Ext: no cyanosis, no calf tenderness Neuro: A&O x 3, no focal deficits noted, normal affect Skin: warm, dry Principal Diagnosis Atrial fibrillation with rapid ventricle response Discharge Data Allergies Allergy/AdvReac Type Severity Reaction Status Date / Time Penicillins Allergy Hives Verified 10/11/22 17:02 spironolactone Allergy blisters Verified 10/11/22 17:02 [From Aldactone] Sulfa (Sulfonamide Allergy Rash Verified 10/11/22 17:02 Antibiotics) Consultations 10/11/22 16:59 ED Decision to Admit Stat 10/12/22 08:00 Consult Cardiology Routine Procedures Performed Laboratory Results WBC 8.66 K/ul (4.8-10.8) 10/12/22 06:47 RBC 3.73 M/uL (3.93-5.22) L 10/12/22 06:47 Hgb 11.7 g/dl (12.0-16.0) L 10/12/22 06:47 Hct 34.7 % (34.1-44.9) 10/12/22 06:47 MCV 93.0 fL (80.0-100.0) 10/12/22 06:47 MCH 31.4 pg (25.0-34.0) 10/12/22 06:47 MCHC 33.7 g/dL (32.0-36.0) 10/12/22 06:47 RDW Std Deviation 42.3 fL (36.4-46.3) 10/12/22 06:47 RDW Coeff of Elgin 12.3 % (11.5-14.5) 10/12/22 06:47 Plt Count 183 K/uL (130-400) 10/12/22 06:47 MPV 10.6 fL (9.4-12.3) 10/12/22 06:47 Immature Gran % (Auto) 0.1 % 10/11/22 15:34 Neut % (Auto) 61.8 % 10/11/22 15:34 Lymph % (Auto) 24.8 % 10/11/22 15:34 Emery % (Auto) 7.3 % 10/11/22 15:34 Eos % (Auto) 5.7 % 10/11/22 15:34 Baso % (Auto) 0.3 % 10/11/22 15:34 Neut # (Auto) 4.90 K/uL (1.4-6.5) 10/11/22 15:34 Lymph # (Auto) 1.97 K/uL (1.2-3.4) 10/11/22 15:34 Emery # (Auto) 0.58 K/uL (0.24-0.82) 10/11/22 15:34 Eos # (Auto) 0.45 K/uL (0-0.50) 10/11/22 15:34 Baso # (Auto) 0.02 K/uL (0-0.2) 10/11/22 15:34 Immature Gran # (Auto) 0.01 K/uL (0.00-0.02) 10/11/22 15:34 PT 11.4 Seconds (9.0-12.0) 10/11/22 15:34 INR 1.1 (0.9-1.1) 10/11/22 15:34 APTT 57.3 Seconds (21.0-31.0) H* 10/12/22 06:47 PTT Ratio 2.1 10/12/22 06:47 Sodium 141 mmol/L (136-145) 10/12/22 06:47 Potassium 4.6 mmol/L (3.5-5.1) D 10/12/22 06:47 Chloride 112 mmol/L (98-107) H 10/12/22 06:47 Carbon Dioxide 25 mmol/L (21-32) 10/12/22 06:47 Anion Gap 4 (3-11) 10/12/22 06:47 BUN 18 mg/dl (6-23) 10/12/22 06:47 Creatinine 1.07 mg/dl (0.6-1.2) D 10/12/22 06:47 Est Cr Clr Drug Dosing 38.5 ml/min 10/12/22 06:47 Est GFR ( Amer) 56.4 ml/min 10/12/22 06:47 Est GFR (Non-Af Amer) 48.6 ml/min 10/12/22 06:47 BUN/Creatinine Ratio 16.8 (10-20) 10/12/22 06:47 Glucose 93 mg/dl (70-99(Fasting)) 10/12/22 06:47 Calcium 8.6 mg/dl (8.5-10.1) 10/12/22 06:47 Magnesium 2.0 mg/dl (1.7-2.4) 10/11/22 15:34 Total Bilirubin 0.4 mg/dl (0.2-1.0) 10/11/22 15:34 AST 20 U/L (13-39) 10/11/22 15:34 ALT 13 U/L (7-52) 10/11/22 15:34 Alkaline Phosphatase 66 U/L (34-104) 10/11/22 15:34 Troponin I High Sens 41.5 pg/ml (0-14) H D 10/12/22 09:02 Total Protein 6.6 gm/dl (6.0-8.3) 10/11/22 15:34 Albumin 3.8 gm/dl (3.4-5.0) 10/11/22 15:34 Globulin 2.8 gm/dl (2.5-4.0) 10/11/22 15:34 Albumin/Globulin Ratio 1.4 (0.9-2) 10/11/22 15:34 TSH 3.013 uIu/ml (0.300-4.500) 10/11/22 15:34 SARS-CoV-2, RNA, NAAT NEGATIVE (NEGATIVE) 10/11/22 16:51 Impressions Chest X-Ray 10/11/22 15:11 SINGLE VIEW CHEST CLINICAL HISTORY: Atypical chest pain. FINDINGS: An AP, portable, upright chest radiograph is compared to study dated 08/02/2022. The heart is enlarged noting atherosclerotic calcification of the thoracic aorta. The pulmonary vasculature is noncongested. Chronic interstitial thickening is similar to previous. The lungs and pleural spaces are clear noting mild bibasilar scarring/atelectasis. No pneumothorax is seen. The skeletal structures are osteopenic. The bony thorax is grossly intact. Degenerative change and scoliosis is seen in the thoracic spine. IMPRESSION: Cardiomegaly with no active disease in the chest. ACT 112: Negative or not required by law. Electronically signed by: Domenic Syed M.D. 10/11/2022 3:53 PM Hospital Course (1) Atrial fibrillation with RVR: Patient is an 82 yr female with H/O CAD, chronic combined CHF, nonrheumatic mitral valve insufficiency, aortic valve insufficiency, HTN, HLD, CKD III, gout presented to ER with complaint of onset of chest discomfort, jaw discomfort, palpitations and weakness this afternoon. Atrial fibrillation with RVR Mild Troponin elevation-demand ischemia due to above -TSH WNL --ECHO: Left ventricle is normal in size. Moderate concentric LVH. Moderate global hypokinesis of left ventricle. EF 35 to 40%. Left atrium is moderately to severely dilated. Diastolic dysfunction, grade 2, consistent with elevated left atrial pressure. Aortic valve sclerosis moderate, without significant aortic valvular stenosis. Mild aortic regurgitation. Moderate to severe mitral regurgitation. Mild tricuspid regurgitation. Right ventricular systolic pressure is moderately elevated at 40 to 50 mmHg. -- Spontaneously converted to sinus rhythm Carvedilol dose increased to 37.5 mg every morning and 25 mg every afternoon IV heparin transition to apixaban 5 mg twice daily Appreciate cardiology input Needs follow-up with cardiology in 1 to 2 weeks. (2) CKD (chronic kidney disease), stage III: Baseline ~1.3 Cr at baseline Monitor renal function Avoid nephrotoxic agents when possible (3) CAD (coronary artery disease): Reported recent cardiac cath. Patient reports has "normal". Completed at [facility] in [place], [place] Follows with Dr. Tidwell in [place] Continue aspirin, carvedilol, isosorbide (4) CHF (congestive heart failure): Chronic systolic, diastolic heart failure Echo as above Currently appears euvolemic Continue Lasix Monitor volume status (5) Valvular heart disease: Continue home medications (6) HTN (hypertension): Continue carvedilol, lisinopril, amiloride, terazosin (7) HLD (hyperlipidemia): Continue atorvastatin DVT Px Apixaban Code Status Full Code Total Time Total Time Spent Total Time Spent (In Minutes): 50 minutes Discharge Plan Discharge Items Patient Disposition: Home - Self-Care Reason For Visit: AFIB RVR Discharge Diagnosis: Atrial fibrillation with rapid ventricle response Activity: Per Instructions section Exercise/Sports: Wait until after follow-up appointment Non-emergency contact: Primary Care Provider and Emergency Man Call non-emergency contact if: you have any medication questions, your symptoms worsen, your pain is concerning for you and you have a fever Follow-up/Referrals: Markell Andres M.D. [Primary Care Provider] - Diet: Heart Healthy Addtl Attending Provider Instructions: Follow-up with your primary care physician Dr. Markell Andres in 1 week Follow-up with your size maker in 2 to 3 weeks as advised. Medication Changes: 1) your carvedilol dose is increased to 37.5 mg a.m. and 25 mg p.m. 2) start taking apixaban (Eliquis) 5 mg twice a day --- Further medication adjustment as per your primary care physician, size maker. Seek immediate medical attention if your symptoms reoccur or worsen Please take all medications as instructed on discharge list below. Please call if you have any questions or problems. You can reach a [facility] hospitalist on duty at [facility] 24 hours a day by calling [phone] Pending Studies at Discharge: No Stand-Alone Forms: My [facility], Smoking Cessation Medications and DC Order Prescriptions: New Eliquis 5 mg Tablet 5 mg PO BID Qty: 60 1RF carvedilol 12.5 mg tablet 12.5 mg PO QAM Qty: 30 1RF Rx Instructions: must administer with a meal/food. Continued terazosin 5 mg Capsule 5 mg PO HS carvedilol 25 mg Tablet 25 mg PO BIDM Rx Instructions: must administer with a meal/food isosorbide mononitrate 30 mg Tablet Extended Release 24 Hr 30 mg PO DAILY Rx Instructions: Takes at 2pm potassium chloride 10 mEq Tablet Extended Release 10 meq PO DAILY Rx Instructions: takes at 2pm aspirin 81 mg Tablet,Delayed Release (Dr/Ec) 81 mg PO QAM tramadol 50 mg Tablet 50 mg PO TID PRN (Reason: Pain) amiloride 5 mg Tablet 5 mg PO HS furosemide 20 mg Tablet 20 mg PO DAILY Rx Instructions: takes at 2pm lisinopril 40 mg Tablet 40 mg PO QAM atorvastatin 10 mg Tablet 10 mg PO HS Fish Oil-Bradshaw -3 Fatty Acids 1 cap PO DAILY Rx Instructions: 3600-1,200 mg clonidine HCl 0.1 mg Tablet 0.1 mg PO DAILY PRN (Reason: SBP > 170) Discharge Orders: Discharge Order (Routine); Ordered 10/12/22 Ordered By: Reid Medley/Other Patient Handouts: AFib Admission Data Admit Date/Time: 10/11/22 17:08 Attending Provider: Reid Vega Admit Provider: Milo Fraire Primary Care Provider: Markell Andres Other Providers: Milo Fraire ; Jasper Mora
[2022-10-13] MEDS ORDERED: carvediloL 12.5 MG TAB PO SCH (09:00)
== END 2022-10-12 15:08 | disposition home or self-care (01) | DRG 309 ==
LOC: ED 15:03 → 2S 17:08 → SUATTDRO 17:08 → 2S 18:40

== ENCOUNTER 2022-11-19 05:03 | Observation (INO) ==
--- NOTE | 2022-10-30 07:54 | History & Physical Report ---
Date of Service October 30, 2022 date of surgery: 11/19/22 Procedure: Right Total Knee Arthroplasty Surgeon: Mannie Rebollar Assessment & Plan (1) Arthritis of right knee: Plan: Further care discussed with patient and at this point in time has failed conservative measures and would like to proceed with a Right total knee replacement. Plan on discharge will be home with home health physical therapy. DVT prophylaxiswith TEDs, SCDs and will also resume Eliquis postop. Patient will have follow up appointment in our office two weeks post op for staple/suture removal and re-evaluation. Patient otherwise has no other questions or concerns. The risks and benefits have been discussed including, but not limited to, risk of infection, nerve injury, stiffness, loss of motion, failure to improve, etc. Reasonable outcomes and options of treatment were discussed. An explanation of appropriate alternatives to the procedure that may be advantageous were discussed and their risks and benefits, as well as the risks and benefits of not proceeding with treatment. I offered to answer any additional inquiries concerning the treatment involved. All the patient's questions were answered. The patient is agreeable, understanding of the treatment plan and alternatives, and wishes to proceed with the treatment plan. History of Present Illness Chief Complaint: right knee pain Primary Care Provider: Markell Andres Ms Landis is a pleasant 82-year-old female who presents for preop evaluation prior to right total knee replacement. He has had continued pain despite conservative measures including oral anti-inflammatories, Tylenol as well as injections including viscosupplementation as well as fluid flow injection. At this point time her pain is affecting her daily activities and rates her current pain as a 7 out of 10. She has failed conservative measures like to proceed with a right total knee replacement Allergies Allergy/AdvReac Type Severity Reaction Status Date / Time Penicillins Allergy Hives Verified 10/11/22 17:02 spironolactone Allergy blisters Verified 10/11/22 17:02 [From Aldactone] Sulfa (Sulfonamide Allergy Rash Verified 10/11/22 17:02 Antibiotics) Home Medications Medication Instructions Recorded Confirmed Type amiloride 5 mg tablet 5 mg PO HS 07/18/22 10/11/22 History aspirin 81 mg tablet,delayed 81 mg PO QAM 07/18/22 10/11/22 History release carvedilol 25 mg tablet 25 mg PO BIDM 07/18/22 10/11/22 History furosemide 20 mg tablet 20 mg PO DAILY 07/18/22 10/11/22 History isosorbide mononitrate 30 mg 30 mg PO DAILY 07/18/22 10/11/22 History tablet,extended release 24 hr lisinopril 40 mg tablet 40 mg PO QAM 07/18/22 10/11/22 History potassium chloride 10 mEq 10 meq PO DAILY 07/18/22 10/11/22 History tablet,extended release terazosin 5 mg capsule 5 mg PO HS 07/18/22 10/11/22 History tramadol 50 mg tablet 50 mg PO TID PRN Pain 07/18/22 10/11/22 History Fish Oil-Nixa -3 Fatty Acids 1 cap PO DAILY 10/11/22 10/11/22 History atorvastatin 10 mg tablet 10 mg PO HS 10/11/22 10/11/22 History clonidine HCl 0.1 mg tablet 0.1 mg PO DAILY PRN SBP > 170 10/11/22 10/11/22 History apixaban 5 mg tablet (Eliquis) 5 mg PO BID #60 tabs 10/12/22 Rx carvedilol 12.5 mg tablet 12.5 mg PO QAM #30 tabs 10/12/22 Rx Past Med/Surg History Medical History CAD (coronary artery disease) Listed in cardio records > "Normal epicardial coronary arteries" per 2016 cardiac cath CHF (congestive heart failure) follows with Dr. Tidwell CKD (chronic kidney disease), stage III History of gout HLD (hyperlipidemia) HTN (hypertension) Osteoarthritis Renal insufficiency Urinary leakage Valvular heart disease Moderate to severe MR, moderate PI/AI/TR per 02/15/22 echo Repeat echo recommended 02/2023 Surgical History History of bunionectomy x2 History of cardiac catheterization 2016 > no stents History of colonoscopy History of hysterectomy History of intestinal surgery benign tumor History of postoperative nausea History of transesophageal echocardiography (LUIS) Family History Sister Breast cancer Brother Prostate cancer Mother Breast cancer Father Lung cancer Other No family history of adverse response to anesthesia Social History Smoking Status: Never smoker Second Hand Exposure: No; Hx Alcohol Use: No Hx Substance Use: No Preferred Language: Paraguayan Communication Ability: Effective Laboratory Monitor Required: No Beliefs That Will Affect Care: None Current Living Situation: Alone Feels Safe at Home: Yes Assistive Devices: None Review of Systems Review of Systems: All systems reviewed & are unremarkable except as noted in HPI & below Constitutional: no fever, no chills and no sweats Respiratory: no cough and no dyspnea Cardiovascular: no chest pain, no dyspnea and no orthopnea Gastrointestinal: no abdominal pain, no nausea and no vomiting Musculoskeletal: as per Subjective / HPI Physical Exam Physical Exam: HT: 5ft 4in WT: 64.6kg Constitutional: WD/WN, vitals as above no acute distress Respiratory: normal respiratory effort, lungs clear to auscultation no respiratory distress, no labored breathing and does not use accessory muscles Cardiovascular: RRR, no murmur, no edema Gastrointestinal (Abdomen): normal bowel sounds, soft, nontender, no hepatosp lenomegaly Musculoskeletal: Knee: + knee abnormal to inspection (RIGHT KNEE: ), + effusion (+1 effusion), + limited ROM of knee (ROM 0/3/110), + knee ROM with crepitation, + joint line tenderness (medial joint line) and + Alan's sign positive; no deformity, no skin erythema, no ecchymosis, no valgus laxity, no varus laxity, anterior drawer test negative, Gunner's sign negative and pivot shift test negative Results & Data Results & Data ([facility]) Diagnostic Findings Right Knee X-ray: Right knee series showing advanced degenerative changes to the right knee, narrowing of the medial compartment and patello-femoral joint with patellar spurring noted, findings showing joint space narrowing of the medial compartment and patello-femoral joint, osteophyte formation and subchondral sclerosis noted. overall varus alignment. no acute bony pathology noted.
--- NOTE | 2022-11-14 14:13 | Anesthesiology Consultation ---
Date of Service November 14, 2022 Assessment & Plan (1) Encounter for pre-operative examination: Chart Review Chart Review: Pending: Refer to Additional Notes / Consult section (pending cardiac clearance, most recent stress test/ECHO, cardiac cath, and PCP appt ) and Patient NOT seen in Pre Admission Testing - Please fax Dr. Tidwell's office for most recent cardiac note, cardiac clearance (per patient this was done), most recent stress test - Awaiting recent cardiac cath ([facility]) - Awaiting most recent PCP note (seen 11/05/22 per nursing assessment) -Will recheck coags DOS (elevated PTT) Due to age and comorbidities- patient is NOT a Same Day Joint candidate -COVID screening: Per PAT nursing assessment on -. No known COVID-19 positive contacts or current COVID-19 related symptoms. Travel screen negative. Patient vaccinated for Covid. At surgeon discretion if preop Covid testing being done. History Surgery Operation Date: 11/19/22 07:15 Proposed Procedures p Right Total Knee Arthroplasty - Mannie Rebollar DO Height/Weight Height: 5 ft 4 in Weight: 62.596 kg Allergies Allergy/AdvReac Type Severity Reaction Status Date / Time Penicillins Allergy Hives Verified 11/11/22 15:14 spironolactone Allergy blisters Verified 11/11/22 15:14 [From Aldactone] Sulfa (Sulfonamide Allergy Rash Verified 11/11/22 15:14 Antibiotics) Medications Home Medications Medication Instructions Recorded Confirmed Last Taken amiloride 5 mg tablet 5 mg PO PM 07/18/22 11/11/22 10/10/22 carvedilol 25 mg tablet 25 mg PO BID 07/18/22 11/11/22 10/11/22 am furosemide 20 mg tablet 20 mg PO QAM 07/18/22 11/11/22 10/10/22 isosorbide mononitrate 30 mg 30 mg PO QAM 07/18/22 11/11/22 10/10/22 tablet,extended release 24 hr lisinopril 40 mg tablet 40 mg PO QAM 07/18/22 11/11/22 10/11/22 potassium chloride 10 mEq 10 meq PO QAM 07/18/22 11/11/22 10/10/22 tablet,extended release terazosin 5 mg capsule 5 mg PO HS 09/07/0111/11/22 10/10/22 tramadol 50 mg tablet 50 mg PO TID PRN Pain 07/18/22 11/11/22 10/11/22 01:00 Fish Oil-Acra -3 Fatty Acids 1 cap PO DAILY 10/11/22 11/11/22 10/10/22 clonidine HCl 0.1 mg tablet 0.1 mg PO DAILY PRN SBP > 170 10/11/22 11/11/22 Unknown apixaban 5 mg tablet (Eliquis) 5 mg PO BID #60 tabs 10/12/22 11/11/22 Unknown carvedilol 12.5 mg tablet 12.5 mg PO QAM #30 tabs 10/12/22 11/11/22 Unknown amiodarone 200 mg tablet 200 mg PO BID 11/11/22 11/11/22 Unknown multivitamin 1 tab PO QAM 11/11/22 11/11/22 Unknown pravastatin 20 mg tablet 20 mg PO 3XWK 11/11/22 11/11/22 Unknown Past Medical History Medical History (Updated 11/14/22 @ 14:31 by Megha Curtis PA-C) Atrial fibrillation Follows with Dr. Tidwell > Eliquis CAD (coronary artery disease) Listed in cardio records > "Normal epicardial coronary arteries" per 2015 cardiac cath CHF (congestive heart failure) follows with Dr. Tidwell CKD (chronic kidney disease), stage III no specialist History of gout HLD (hyperlipidemia) HTN (hypertension) Renal insufficiency Urinary leakage Valvular heart disease Moderate to severe MR, mild AR/TR per 10/2022 echo Past Family History Family History Sister Breast cancer Brother Prostate cancer Mother Breast cancer Father Lung cancer Other No family history of adverse response to anesthesia Past Surgical History Surgical History History of bunionectomy x2 History of cardiac catheterization Sep 2022 > [facility] > no stents 2015 > no stents History of colonoscopy History of hysterectomy History of intestinal surgery benign tumor History of postoperative nausea History of transesophageal echocardiography (LUIS) Social History Smoking Status: Never smoker Do You Dip or Chew Tobacco: No Hx Alcohol Use: No Hx Substance Use: No substance use type: does not use Lab Results Anesthesia Preop Results Results Anesthesia Widget: WBC 8.66 K/ul (4.8-10.8) 10/12/22 Hgb 11.7 g/dl (12.0-16.0) L 10/12/22 Hct 34.7 % (34.1-44.9) 10/12/22 Plt 183 K/uL (130-400) 10/12/22 Na 141 mmol/L (136-145) 10/12/22 K 4.6 mmol/L (3.5-5.1) 10/12/22 Cl 112 mmol/L (98-107) H 10/12/22 CO2 25 mmol/L (21-32) 10/12/22 BUN 18 mg/dl (6-23) 10/12/22 Creat 1.07 mg/dl (0.6-1.2) 10/12/22 Glucose Level 93 mg/dl (70-99(Fasting)) 10/12/22 PT 11.4 Seconds (9.0-12.0) 10/11/22 PTT 57.3 Seconds (21.0-31.0) H* 10/12/22 INR 1.1 (0.9-1.1) 10/11/22 TSH 3.013 uIu/ml (0.300-4.500) 10/11/22 Testing Laboratory Results Elevated PTT- patient on Eliquis Electrocardiogram Date: 10/12/22 Findings: + NSR @ (61bpm ) Left axis deviation Nonspecific ST and T wave abnormality Echocardiogram Date: 10/12/22 EF: 35-40% LV Function: dysfunctional Other Findings: + LVH (Moderate/concentric) and + diastolic dysfunction (Grade 2) Sinus rhythm present during study Moderate global hypokinesis of the left ventricle Left atrium severely dilated Aortic valve sclerosis moderate, without significant aortic valvular stenosis Mild AR. Moderate to severe MR. Mild TR. RVSP is moderately elevated at 40-50 mmHg
[~2022-11-19 05:03] MED LIST: ALLERGY Noted to ORDERED Medication SCH
[2022-11-19 05:58] LABS: INR 1.1 (0.9-1.1); Partial Thromboplastin Ratio 1.2; Partial Thromboplastin Time 31.7 Seconds (21.0-31.0); Prothrombin Time 11.9 Seconds (9.0-12.0)
[2022-11-19] MEDS ORDERED: LR 500ML BOLUS, THEN 15ML/HR IV SCH (06:00)
[2022-11-19] MEDS ORDERED: ceFAZolin 2000MG 2,000 MG/15 ML SYR IV SCH (06:00)
[2022-11-19] MEDS ORDERED: TRANEXAMIC ACID 1,000 MG **IV Intra-op IV SCH (06:00)
[2022-11-19] MEDS ORDERED: ACETAMINOPHEN 500 MG TAB PO SCH (06:00)
[2022-11-19] MEDS ORDERED: ROPIVACAINE 0.5% HCL/PF 150 MG, BUPIVACAINE 0.75% MPF 20 ML, EPINEPHrine 30MG/30ML (OR ... INSTIL SCH (06:00)
[2022-11-19] MEDS ORDERED: METOCLOPRAMIDE HCL 10 MG TABLET PO SCH (06:00)
[2022-11-19] MEDS ORDERED: CeleBREX 200 MG CAP PO SCH (06:00)
[2022-11-19] MEDS ORDERED: dexAMETHasone 4 MG TAB PO SCH (06:00)
[2022-11-19] MEDS ORDERED: TRANEXAMIC ACID 1,000 MG **IV Pre-op IV SCH (06:00)
[2022-11-19] MEDS ORDERED: FAMOTIDINE 20 MG TAB PO SCH ×2 (06:00→21:00)
[2022-11-19] MEDS ORDERED: GABAPENTIN 300 MG CAP PO SCH (06:00)
[2022-11-19] MEDS ORDERED: EPINEPHrine INJ 1 MG/ML AMP ONE (06:21)
[2022-11-19] MEDS ORDERED: DEXAMETHASONE SOD INJ 4 MG/ML VIAL ONE (06:21)
[2022-11-19] MEDS ORDERED: BUPIVACAINE 0.25% 30 ML VIAL ONE (06:21)
[2022-11-19] MEDS ORDERED: BUPIVACAINE 0.5 % 5 MG/1 ML PF 10ML VIAL ONE (06:21)
[2022-11-19] MEDS ORDERED: MIDAZOLAM HCL 1 MG/ML 2ML VIAL ONE (06:47)
[2022-11-19] MEDS ORDERED: PROPOFOL IV EMULSION 10 MG/ML 20 ML VIAL IV ONE ×2 (06:47→08:30)
[2022-11-19] MEDS ORDERED: LIDOCAINE 2% MPF LOCAL 5 ML VIAL INFIL ONE (06:47)
[2022-11-19] MEDS ORDERED: fentaNYL citrate 100 MCG/2 ML VIAL ONE (06:47)
[2022-11-19] MEDS ORDERED: ORTHO JOINT ANESTHETIC ONE (07:03)
[2022-11-19] MEDS ORDERED: ceFAZolin 2,000 MG/15 ML IV PUSH IV ONE (07:15)
[2022-11-19] MEDS ORDERED: Nursing to Pharmacy Communication SCH (07:15)
--- NOTE | 2022-11-19 07:33 | History & Physical Bridge Note ---
Date of Service November 19, 2022 History & Physical Bridge Note I have examined the patient, reviewed the History & Physical and in the interval since the performance of the History & Physical I have noted the following changes of clinical significance: no changes noted
[2022-11-19] MEDS ORDERED: hydrALAZINE HCL 20 MG/ML VIAL ONE (07:59)
--- NOTE | 2022-11-19 08:52 | Operative Report ---
Post Operative Report Pre & Post Diagnosis Operation Date: 11/19/22 07:15 Pre-Op Diagnosis: Tricompartment Osteoarthritis of Both Knees Post-Op Diagnosis: Tricompartment Osteoarthritis of Both Knees I identified the patient and participated in the time-out.: Yes Procedure Operation Date: 11/19/22 07:15 Actual Procedures p Right Total Knee Arthroplasty(Right) utilizing [employer] journey 2 patient matched total knee arthroplasty size femur 4 tibia to polyeleven patella 26 round- Mannie Rebollar DO Surgeon Mannie Rebollar DO Investor Relations Director MARCELA Dumont Estimated Blood Loss 35 Findings Consistent with Post-Op Diagnosis Patient presents with severe end-stage tricompartmental DJD right knee with varus alignment subchondral sclerosis marginal osteophytes eburnated [id number] moderate to large effusion no response to conservative management Specimens Bone card Drains Medium bore Hemovac Anesthesia Type MAC Spinal Regional Complications none Disposition Accompanied Patient To Recovery: No Disposition: Recovery Room Indications Patient presents with severe end-stage DJD no response to conservative management having failed attempted conservative management occluding physical therapy anti-inflammatories relative rest activity modification the above intraoperative findings were noted Description of Procedure Patient presents severe end-stage DJD no response to conservative management having failed attempted conservative management including physical therapy anti-inflammatories relative rest activity modification corticosteroid injection viscosupplementation the above intraoperative findings were notedAfter proper prepping and draping of the Right lower extremity anterior midline incision was made over the region of the extensor extensor mechanism after meticulous hemostasis was obtained and maintained in subcutaneous tissues a medial parapatellar incision was made The patella was subluxed lateralward the medial lateral gutter were cleaned from any hypertrophic synovitis and scar tissue of the distal femoral block was placed and the distal femoral osteotomy cut was made subsequently the chamfers anterior and posterior osteotomy cuts were made utilizing the 4-in-1 block the tibia was subsequently subluxed anteriorward medial and ateral meniscal remnants were excised in their entirety remnants of the anterior and posterior cruciate ligaments were excised in their entirety excellent exposure of the proximal tibia was obtained the tibial osteotomy guide was placed on the proximal tibial osteotomy cut was made once again the knee was irrigated with copious amounts of sterile saline solution the patella was subsequently everted lateralward thickened scar tissue around the patella was removed the patella was subsequently cut utilizing a freehand technique and was drilled prepared for final preparation and placement of patella socially flexion-extension gaps were checked and the equal and symmetric trials were placed to the appropriate femoral and tibial trials with poly-spacer being placed for equal flexion and extension gaps and full range of motion including extension to 0 and flexion to 140 the trial components after having been taken to recovery range of motion was subsequently removed meticulous hemostasis was obtained and maintained subsequently a knee block injection of joint cocktail including ropivacaine 0.5% 150 mg. Bupivacaine 0.5% epinephrine 1-200,030 mL's toradol 30 mg dexamethasone 4 mg ketamine 10 mg clonidine 100 micrograms normal saline solution 30 mg was infiltrated into the soft tissues of the posterior knee medial lateral gutters and periosteal synovium special attention was paid to protect neurovascular structures at all times subsequently trial components having been removed the knee was irrigated with sterile saline solution. debris was removed the proximal tibia was subsequently prepared and was made ready for the placement of the tibial component tibial component was also cemented and tamped into position the femoral component was subsequently placed and cemented in the position the patellar component was subsequently cemented in position because hemostasis once again obtained and maintained wound having been thoroughly irrigated with debridement and debridement lavage was performed as well as a medial parapatellar incision closed with #1 Vicryl in interrupted fashion subcutaneous was closed with #2 Vicryl skin was closed with skin clips. PA-C was necessary for prepping and drapping as well as wound closure of deep fascia Sub cutaneous tissue and skin and was necessary for the case. A sterile compressive dressing was placed patient was taken to recovery in stable condition of report dictated by Smooth I attest to the content of the Intraoperative Record and any orders documented therein. Any exceptions are noted below.Due to the complex nature of the proced ure, the entire surgery was performed with the operational assistance of MARCELA Dumont. The underwriting assistant, under direct supervision, was involved in the actual performance of all aspects of the surgical procedure including hemostasis, tissue retraction and incision, instrument management, patient positioning, and wound closure. I attest to the content of the Intraoperative Record and any orders documented therein. Any exceptions are noted below.
[2022-11-19] MEDS ORDERED: ONDANSETRON INJ 2 MG/ML 2 ML VIAL IV PRN (10:21)
[2022-11-19] MEDS ORDERED: cloNIDine HCL 0.1 MG TAB PO PRN (10:21)
[2022-11-19] MEDS ORDERED: oxyCODONE HCL IR 5 MG TAB (IMMEDIATE RELEASE) PO PRN (10:21)
[2022-11-19] MEDS ORDERED: diphenhydrAMINE Capsule 25 MG CAP PO PRN (10:21)
[2022-11-19] MEDS ORDERED: HYDROmorphone INJ 0.5 MG/0.5 ML SYR IV PRN (10:21)
[2022-11-19] MEDS ORDERED: METOCLOPRAMIDE HCL INJ 5 MG/ML 2 ML VIAL IV PRN (10:21)
[2022-11-19] MEDS ORDERED: bisacodyL 10 MG SUPP PR PRN (10:21)
[2022-11-19] MEDS ORDERED: MAGNESIUM HYDROXIDE SUSP 30 ML UDC PO PRN (10:21)
[2022-11-19] MEDS ORDERED: SODIUM CHLORIDE 0.9% 1000ML 1,000 ML IV SCH (10:21)
[2022-11-19] MEDS ORDERED: NALOXONE HCL 0.4 MG/1 ML VIAL/CARP IV PRN (10:21)
--- NOTE | 2022-11-19 10:39 | Hospitalist Consultation ---
Date of Consultation November 19, 2022 Assessment & Plan (1) Status post right knee replacement: -Patient is currently afebrile, hemodynamically stable, and now stable on RA -Patient is Post-op day #O of a right total knee arthropathy with Dr. Rebollar -No reported intraoperative complications, EBL listed at 35 cc -Patient initially noted to be on 2L NC post-op, can confirm she is now stable on RA -Pain regimen, perioperative abx, and DVT PPX per the primary did -Will touch base with primary team regarding holding additional IV fluids at this time as she is hemodynamically stable and I want to avoid volume overload with her history of CHF -Added on BID famotidine for ulcer prophylaxis while admitted -Ordered BMP and mag to monitor her post-op renal function and electrolytes, will follow up -Agree with am CBC and BMP -Medicine will continue to follow for now (2) Paroxysmal atrial fibrillation with rapid ventricular response: -Currently in NSR and rate controlled at the time of my exam -Agree with restarting BID Carvedilol tonight if she is hemodynamically stable -Agree with continuing Amiodarone tonight -Agree with restarting Eliquis tomorrow as long as she is hemodynamically stable and Hgb is stable (3) Nonischemic cardiomyopathy: -Examines Euvolemic on exam today -Patient is high risk for volume overload, recommend holding additional IV fluids at this time, will reach out to the primary team -Patient confirmed that she is still on lasix and amiloride -Agree with restarting her amiloride tonight is she is stable, can restart lasix on 11/21 as ordered if she continues to remain euvolemic, may have to restart earlier if needed -Can restart Imdur tomorrow if she is hemodynamically stable -Will get BMP and mag now to ensure she is ok to restart her amiloride tonight, will follow up (4) HTN (hypertension): -Hemodynamically stable -Agree with restarting carvedilol tonight, and lisinopril tomorrow if her renal function is stable -Hold Imdur, lasix, and prn clonidine today to avoid hypotension (5) HLD (hyperlipidemia): -Continue statin (6) CAD (coronary artery disease): -Continue statin (7) CKD (chronic kidney disease), stage III: -Will review BMP when resulted Plan The patient was discussed with Dr. Read at the time of the consult Supervising Physician Co-Signing Physician Notes I personally saw and examined the patient. I verified all woo points and agree with Garrett Holland PA-C with the following exceptions and/or additions: 82 year old female POD #0 right TKA. No acute questions or concerns from patient. O/E HS1+2, no murmurs, Chest CTAB, Abdo SNT, NV distal to operation site A/P S/p right knee replacement -pain/PT/bowel management per orthopedics. Agree with famotidine but will change to daily. Paroxysmal atrial fibrillation -currently regular rate and rhythm, restarting carvedilol, amiodarone. Eliquis to restart when okay with orthopedics History of Present Illness Reason for Consultation: Post-op medical management Requesting Physician: Mannie Rebollar DO Attending Physician: Dr. Hasmukh Read History of Present Illness Mariella is an 82 year old female with a PMH significant fo Paroxysmal afib on eliquis, CAD, HTN, HFrEF (LVEF of 35-40%, grade II diastolic dysfunction, mod- severe mitral regurgitation), and stage 3 CKD who presented to the [facility] OR on 11/19/22 for elective right total knee arthropathy with Dr. Rebollar. Per the op erative report, there were no reported intraoperative complications, anesthesia was listed as "[facility]", and EBL was listed as 35 cc. Review of her documented vital signs since arrival this am shows stable blood pressures, she has been afebrile and has been stable on 2L NC. At the time of the exam the patient was lying comfortably in bed in no acute distress with her daughter sitting bedside. At the beginning of my exam the patient was on 1L NC, I confirmed with the patient that she is not on oxygen at home and does not use CPAP or Bipap HS. I turned her oxygen off and she remained stale on RA throughout my exam. She states that she is feeling well after her procedure. Her RLE is still significantly numb from the nerve block and she is currently without pain. She has no complaints at the time of my exam and has been able to drink water without issue since her procedure. I confrimed with her that she is still taking both the amiloride and lasix. When asked, she confirms that she has had the large growth on the roof of her mouth for an extended period of time, it is not new. Please refer to Dr. Read's attestation for any changes to the treatment plan Allergies Allergy/AdvReac Type Severity Reaction Status Date / Time Penicillins Allergy Hives Verified 11/19/22 05:38 spironolactone Allergy blisters Verified 11/19/22 05:38 [From Aldactone] Sulfa (Sulfonamide Allergy Rash Verified 11/19/22 05:38 Antibiotics) Home Medications Medication Instructions Recorded Confirmed Type amiloride 5 mg tablet 5 mg PO PM 07/18/22 11/20/22 History carvedilol 25 mg tablet 25 mg PO BID 07/18/22 11/20/22 History furosemide 20 mg tablet 20 mg PO QAM 07/18/22 11/20/22 History isosorbide mononitrate 30 mg 30 mg PO QAM 07/18/22 11/20/22 History tablet,extended release 24 hr lisinopril 40 mg tablet 40 mg PO QAM 07/18/22 11/20/22 History potassium chloride 10 mEq 10 meq PO QAM 07/18/22 11/20/22 History tablet,extended release terazosin 5 mg capsule 5 mg PO HS 07/18/22 11/20/22 History clonidine HCl 0.1 mg tablet 0.1 mg PO DAILY PRN SBP > 170 10/11/22 11/20/22 History apixaban 5 mg tablet (Eliquis) 5 mg PO BID #60 tabs 10/12/22 11/20/22 Rx amiodarone 200 mg tablet 200 mg PO BID 11/11/22 11/20/22 History multivitamin 1 tab PO QAM 11/11/22 11/20/22 History pravastatin 20 mg tablet 20 mg PO 3XWK 11/11/22 11/20/22 History acetaminophen 500 mg tablet 1,000 mg PO Q8 21 days #126 tabs 11/19/22 11/20/22 Rx (Tylenol Extra Strength) clindamycin HCl 300 mg capsule 300 mg PO TID 7 days #21 caps 11/19/22 11/20/22 Rx docusate sodium 100 mg capsule 100 mg PO BID 10 days #20 caps 11/19/22 11/20/22 Rx oxycodone 5 mg tablet 5 - 10 mg PO Q6H PRN pain #30 tabs 11/19/22 11/20/22 Rx Patient History Medical History (Updated 11/20/22 @ 09:46 by Jennifer Bonds PA-C) Atrial fibrillation Follows with Dr. Tidwell > Eliquis CAD (coronary artery disease) Listed in cardio records > "Normal epicardial coronary arteries" per 2015 cardiac cath CHF (congestive heart failure) follows with Dr. Tidwell CKD (chronic kidney disease), stage III no specialist History of gout HLD (hyperlipidemia) HTN (hypertension) Renal insufficiency Urinary leakage Valvular heart disease Moderate to severe MR, mild AR/TR per 10/2022 echo Surgical History (Updated 11/19/22 @ 11:07 by Garrett Holland PA-C) History of bunionectomy x2 History of cardiac catheterization Sep 2022 > [facility] > no stents 2015 > no stents History of colonoscopy History of hysterectomy History of intestinal surgery benign tumor History of postoperative nausea History of transesophageal echocardiography (LUIS) Family History Sister Breast cancer Brother Prostate cancer Mother Breast cancer Father Lung cancer Other No family history of adverse response to anesthesia Social History Smoking Status: Never smoker Second Hand Exposure: No; Do You Dip or Chew Tobacco: No; Tobacco Cessation Education Requested by Patient: No Hx Alcohol Use: No Hx Substance Use: No Preferred Language: Wolof Communication Ability: Effective Android Developer Required: No Beliefs That Will Affect Care: None Current Living Situation: Alone Other Information That Helps Us Care for You: No Feels Safe at Home: Yes Safety Concerns: Feels Safe At This Time Assistive Devices: Walker Review of Systems Review of Systems: Denies current fever, chills, headache, changes in vision, hearing, taste, and smell, chest pain, SOB, cough, abdominal pain, nausea, vomiting, diarrhea, hematemesis, melena, dysuria, hematuria, and recent falls. All systems have been reviewed and are otherwise negative. Physical Exam Physical Exam: Physical Exam: General: In no acute distress, stated age, well-nourished, non-toxic appearing HEENT: Normocephalic, atraumatic, no scleral icterus, pupils around round, symmetrical, and reactive to light, moist mucus membranes, patient with large growth on the roof of the mouth which causes a lisp while speaking, trachea midline, no thyromegaly Chest/Pulm: No respiratory distress, symmetrical chest expansion, clear breath sounds throughout Cardiac: RRR, no murmurs noted Abdomen: Negative for ascites and bruising, normoactive bowel sounds, soft, non-tender to palpation throughout Musculoskeletal: Patient with RLE currently wrapped and with drain in place, non-infected blood is noted in the drain, patient has intact sensation, cap refill, and motor function in the feet/toes Extremities: Radial, dorsalis pedis, and posterior tibial pulses are intact and symmetrical, no edema noted in the BL LE's Skin: Warm, dry, no rashes , lesions, or scars noted Neuro: Alert and oriented to person, place, month, year, and president, no focal defects, CN II-XII tested and intact, finger to nose test negative, no tremors noted Psych: No acute distress, calm and cooperative during the exam Results & Data Results & Data ([facility]) Vital Signs (Past 12 Hours) Vital Signs Temp Pulse Pulse Resp BP Pulse Ox O2 Del Method 11/19/22 09:50 36.3 C L 55 L 15 138/54 L 95 Nasal Cannula 11/19/22 09:30 56 L 15 139/56 L 97 Nasal Cannula 11/19/22 09:40 61 12 137/56 L 94 Nasal Cannula 11/19/22 09:22 36.3 C L 59 L 20 136/55 L 93 Nasal Cannula 11/19/22 05:21 36.8 C 56 L 18 96 Room Air O2 Flow Rate 11/19/22 09:50 2 11/19/22 09:30 2 11/19/22 09:40 2 11/19/22 09:22 2 11/19/22 05:21 Laboratory Results Abnormal lab results 11/19/22 Range/Units 05:22 APTT 31.7 H (21.0-31.0) Seconds PG Care Time/CCT Total # of Minutes Spent Total Time Spent with Patient: Total time spent is greater than 50% in coordination of care (as documented) at patient's floor/unit and/or counseling patient: Coding Level of Care Code Established Pt INP/OBS CONSULT LVL 4, 60 MIN Patient Type Established Medical Decision Making High Complexity Diagnoses Status post right knee replacement Z96.651 Paroxysmal atrial fibrillation with rapid ventricular response I48.0 Nonischemic cardiomyopathy I42.8 HTN (hypertension) I10 HLD (hyperlipidemia) E78.5 CAD (coronary artery disease) I25.10 CKD (chronic kidney disease), stage III N18.30
--- NOTE | 2022-11-19 10:53 | Anesthesiology Progress Note ---
Date of Service November 19, 2022 Anesthesia Post Procedure Vital Signs Vital Signs: Temp Pulse Pulse Resp BP Pulse Ox O2 Del Method 11/19/22 10:45 53 L 16 148/68 H 95 Room Air 11/19/22 10:15 36.4 C L 57 L 18 145/66 H 96 Nasal Cannula 11/19/22 10:15 Nasal Cannula 11/19/22 09:50 36.3 C L 55 L 15 138/54 L 95 Nasal Cannula 11/19/22 09:30 56 L 15 139/56 L 97 Nasal Cannula 11/19/22 09:40 61 12 137/56 L 94 Nasal Cannula 11/19/22 09:22 36.3 C L 59 L 20 136/55 L 93 Nasal Cannula 11/19/22 05:21 36.8 C 56 L 18 96 Room Air O2 Flow Rate 11/19/22 10:45 11/19/22 10:15 2 11/19/22 10:15 2 11/19/22 09:50 2 11/19/22 09:30 2 11/19/22 09:40 2 11/19/22 09:22 2 11/19/22 05:21 Transfer of Care Handoff Completed per policy Notes Mental Status: alert / awake / arousable Patient Amnestic to Procedure: Yes Nausea / Vomiting: adequately controlled Pain: adequately controlled Airway Patency, RR, SpO2: stable & adequate BP & HR: stable & adequate Hydration State: stable & adequate Neuraxial Anesthesia: was administered and sensory block is resolving Anesthetic Complications: no major complications apparent and Pt Satisfied with anesthetic care
--- NOTE | 2022-11-19 11:32 | XRay Report ---
XR knee RT 1 or 2V routine CLINICAL HISTORY: Surgical Post Op TECHNIQUE: 2 views of the right knee were obtained. Comparison: None available at the time of this dictation. FINDINGS: Patient is status post total knee arthroplasty with expected postsurgical changes including soft tiss ue swelling and subcutaneous emphysema. No periarticular lucency or hardware fracture is seen. IMPRESSION: Expected postoperative appearance status post placement of total knee arthroplasty. ACT 112: Negative or not required by law. Electronically signed by: Eladio Carroll M.D. 11/19/2022 11:30 AM
[2022-11-19 12:21] LABS: Calcium 8.9 mg/dl (8.5-10.1); Creatinine Clr Calc Pharmacy 29.3 ml/min; Est GFR (African American) 44.6 ml/min; Est GFR (Non-African American) 38.4 ml/min; Potassium 4.1 mmol/L (3.5-5.1)
[2022-11-19] MEDS: ACETAMINOPHEN 500 MG TAB PO SCH ×2 (13:50→21:07)
[2022-11-19] MEDS: ceFAZolin 2000MG 2,000 MG/15 ML SYR IV SCH (17:00)
[2022-11-19] MEDS ORDERED: TERAZOSIN HCL 5 MG CAP PO SCH (21:00)
[2022-11-19] MEDS ORDERED: SENNA 8.6 MG TAB PO SCH (21:00)
[2022-11-19] MEDS ORDERED: aMILoride HCL 5 MG TAB PO SCH ×2 (21:00)
[2022-11-19] MEDS: DOCUSATE SODIUM 100 MG CAP PO SCH (21:04)
[2022-11-19] MEDS: AMIODARONE 200 MG TAB PO SCH (21:05)
[2022-11-19] MEDS: carvediloL 25 MG TAB PO SCH (21:06)
[2022-11-20] MEDS: ceFAZolin 2000MG 2,000 MG/15 ML SYR IV SCH (02:17)
[2022-11-20] MEDS: ACETAMINOPHEN 500 MG TAB PO SCH ×2 (06:40→13:36)
[2022-11-20 06:50] LABS: Hematocrit (blood only) 33.8 % (34.1-44.9); Hemoglobin 11.7 g/dl (12.0-16.0); Mean Corpuscular Hemoglobin 31.4 pg (25.0-34.0); Mean Corpuscular Hgb Conc 34.6 g/dL (32.0-36.0); Mean Corpuscular Volume 90.6 fL (80.0-100.0); Mean Platelet Volume 11.3 fL (9.4-12.3); Platelet Count 189 K/uL (130-400); RDW Coefficient of Variation 12.4 % (11.5-14.5); RDW Standard Deviation 41.4 fL (36.4-46.3); Red Blood Count 3.73 M/uL (3.93-5.22)
[2022-11-20 07:17] LABS: BUN Creatinine Ratio 20.8 (10-20); Calcium 8.9 mg/dl (8.5-10.1); Creatinine Clr Calc Pharmacy 25.6 ml/min; Est GFR (African American) 37.8 ml/min; Est GFR (Non-African American) 32.6 ml/min; Potassium 4.1 mmol/L (3.5-5.1)
--- NOTE | 2022-11-20 08:38 | Hospitalist Progress Note ---
Date of Service November 20, 2022 Assessment & Plan Admission and Anticipated Discharge Date Admission Date: November 19, 2022 Results & Data Results & Data ([facility]) Vital Signs (Past 12 Hours) Vital Signs Temp Pulse Pulse Resp BP BP Pulse Ox 11/20/22 08:00 11/20/22 07:53 36.3 C L 58 L 20 150/68 H 91 11/20/22 02:20 36.4 C L 55 L 20 168/79 H 94 11/19/22 20:44 166/70 H O2 Del Method 11/20/22 08:00 Room Air 11/20/22 07:53 Room Air 11/20/22 02:20 Room Air 11/19/22 20:44 PG Care Time/CCT Total # of Minutes Spent Total Time Spent with Patient: Total time spent is greater than 50% in coordination of care (as documented) at patient's floor/unit and/or counseling patient: Coding
[2022-11-20] MEDS ORDERED: FAMOTIDINE 20 MG TAB PO SCH (09:00)
[2022-11-20] MEDS ORDERED: ISOSORBIDE MONO EXTENDED REL 30 MG TABCR PO SCH (09:00)
[2022-11-20] MEDS ORDERED: carvediloL 12.5 MG TAB PO SCH (09:00)
[2022-11-20] MEDS ORDERED: lisinopril 40 MG TAB PO SCH (09:00)
[2022-11-20] MEDS ORDERED: APIXABAN 5 MG TABLET PO SCH (09:00)
[2022-11-20] MEDS ORDERED: POTASSIUM CHLORIDE 10 MEQ TABCR PO SCH (09:00)
[2022-11-20] MEDS ORDERED: MULTIVITAMIN TAB PO SCH (09:00)
[2022-11-20] MEDS ORDERED: PRAVASTATIN SOD 20 MG TAB PO SCH (09:00)
[2022-11-20] MEDS: AMIODARONE 200 MG TAB PO SCH (09:02)
[2022-11-20] MEDS: carvediloL 25 MG TAB PO SCH (09:02)
[2022-11-20] MEDS: DOCUSATE SODIUM 100 MG CAP PO SCH (09:02)
--- NOTE | 2022-11-20 09:54 | Hospitalist Consultation ---
Date of Consultation November 20, 2022 Assessment & Plan (1) Status post right knee replacement: - POD #1 s/p R total knee replacement by Dr. Rebollar on 11/19/22 - Pain management, bowel regimen and DVT ppx per the primary team - PT/OT consults, pt doing well, pt unsure currently if planning on outpatient therapy, lives by self but has a sister coming to stay with her - Follow am CBC to monitor for acute blood loss--hgb today is 11.7 and stable per previous results - Does not appear to be volume overloaded (2) CHF (congestive heart failure): (3) Atrial fibrillation: (4) CAD (coronary artery disease): (5) Valvular heart disease: (6) HTN (hypertension): (7) HLD (hyperlipidemia): - Follows with Dr. Tidwell with cardiology as outpatient - NSR and rate controlled on exam, no signs of current volume overload. - Carvedilol 37.5 mg QAM and 25 mg in QPM - noted that HR has been borderline low throughout the course of admission in the 50s. She is in NSR. Will recommend this is reduced to 25 mg BID and communicated with PCP and cardiology. - Continue, amiodarone, amiloride,isosorbide mononitrate, eliquis resumed at this time, lasix 20 mg PO daily resumed - Clonidine is available prn - Monitoring volume status closely as the pt with CHF with reduced EF increases the risk for acute symptoms greatly, strict I/Os - reviewed no changes in weight today, output is -70mL at this time. Does not appear volume up on exam. - Cont statin therapy - Lisinopril is on hold - Hgb has remained stable at 11.7 (8) CKD (chronic kidney disease), stage III: - Cr. 1.49 today, baseline of 1.3-1.4, resumed lasix today as above - Follow am labs - Currently holding lisinopril - would hold one more day (resume on 11/22) - Pt did not receive contrast here intraoperatively - flouro guided needle placement for peripheral IV line DVT ppx: - teds, scds, eliquis CODE: Full Dispo: From home, likely to remain in the hospital x 1-2 days. Thank you for involving us in the care of Ms Landis. Please do not hesitate to call with questions or concerns. At this time medicine service will follow along. History of Present Illness Reason for Consultation: Medical management Requesting Physician: Dr. Rebollar Attending Physician: Mannie Rebollar DO History of Present Illness This is an 82 yo F with PMHx of paroxysmal A. fib on eliquis, CAD, HTN, HFrEF (LVEF of 35-40%, grade II diastolic dysfunction, mod-severe mitral regurgitation), and stage 3 CKD who presented on 11/19/22 for elective right total knee arthropathy with Dr. Rebollar. The patient was initially seen by [facility]'s hospitalist team, but as she has previously been seen by our [facility] team, we will pick her up. The patient was seen while she was actively participating with PT in the room. She has just gotten done walking around the vargas x 1 and used the bathroom wit hout difficulty per PT. Pain is well controlled. She was able to eat breakfast without any difficulty. Last bowel movement was 3 days ago. No issues with urination. Reports that she was somewhat nauseous last evening after surgery but this has resolved. She denies any issues with shortness of breath or chest pain or swelling in her lower extremities or fingers. She lives at home by herself but has a sister who is coming to live with her after she goes home. When asking about outpatient physical therapy, she says that she is not interested in participating in it, and thinks that she will be able to manage herself at home. Denies any other acute complaints. Allergies Allergy/AdvReac Type Severity Reaction Status Date / Time Penicillins Allergy Hives Verified 11/19/22 05:38 spironolactone Allergy blisters Verified 11/19/22 05:38 [From Aldactone] Sulfa (Sulfonamide Allergy Rash Verified 11/19/22 05:38 Antibiotics) Home Medications Medication Instructions Recorded Confirmed Type amiloride 5 mg tablet 5 mg PO PM 07/18/22 11/20/22 History carvedilol 25 mg tablet 25 mg PO BID 07/18/22 11/20/22 History furosemide 20 mg tablet 20 mg PO QAM 07/18/22 11/20/22 History isosorbide mononitrate 30 mg 30 mg PO QAM 07/18/22 11/20/22 History tablet,extended release 24 hr lisinopril 40 mg tablet 40 mg PO QAM 07/18/22 11/20/22 History potassium chloride 10 mEq 10 meq PO QAM 07/18/22 11/20/22 History tablet,extended release terazosin 5 mg capsule 5 mg PO HS 07/18/22 11/20/22 History clonidine HCl 0.1 mg tablet 0.1 mg PO DAILY PRN SBP > 170 10/11/22 11/20/22 History apixaban 5 mg tablet (Eliquis) 5 mg PO BID #60 tabs 10/12/22 11/20/22 Rx carvedilol 12.5 mg tablet 12.5 mg PO QAM #30 tabs 10/12/22 11/20/22 Rx amiodarone 200 mg tablet 200 mg PO BID 11/11/22 11/20/22 History multivitamin 1 tab PO QAM 11/11/22 11/20/22 History pravastatin 20 mg tablet 20 mg PO 3XWK 11/11/22 11/20/22 History acetaminophen 500 mg tablet 1,000 mg PO Q8 21 days #126 tabs 11/19/22 11/20/22 Rx (Tylenol Extra Strength) clindamycin HCl 300 mg capsule 300 mg PO TID 7 days #21 caps 11/19/22 11/20/22 Rx docusate sodium 100 mg capsule 100 mg PO BID 10 days #20 caps 11/19/22 11/20/22 Rx oxycodone 5 mg tablet 5 - 10 mg PO Q6H PRN pain #30 tabs 11/19/22 11/20/22 Rx Patient History Medical History (Updated 11/20/22 @ 09:46 by Jennifer Bonds PA-C) Atrial fibrillation Follows with Dr. Tidwell > Eliquis CAD (coronary artery disease) Listed in cardio records > "Normal epicardial coronary arteries" per 2015 cardiac cath CHF (congestive heart failure) follows with Dr. Tidwell CKD (chronic kidney disease), stage III no specialist History of gout HLD (hyperlipidemia) HTN (hypertension) Renal insufficiency Urinary leakage Valvular heart disease Moderate to severe MR, mild AR/TR per 10/2022 echo Surgical History (Updated 11/19/22 @ 11:07 by Garrett Holland PA-C) History of bunionectomy x2 History of cardiac catheterization Sep 2022 > [facility] > no stents 2015 > no stents History of colonoscopy History of hysterectomy History of intestinal surgery benign tumor History of postoperative nausea History of transesophageal echocardiography (LUIS) Family History Sister Breast cancer Brother Prostate cancer Mother Breast cancer Father Lung cancer Other No family history of adverse response to anesthesia Social History Smoking Status: Never smoker Second Hand Exposure: No; Do You Dip or Chew Tobacco: No; Tobacco Cessation Education Requested by Patient: No Hx Alcohol Use: No Hx Substance Use: No Preferred Language: Uzbek Communication Ability: Effective Systems Management Consultant Required: No Beliefs That Will Affect Care: None Current Living Situation: Alone Other Information That Helps Us Care for You: No Feels Safe at Home: Yes Safety Concerns: Feels Safe At This Time Assistive Devices: Walker Review of Systems Review of Systems: Constitutional: No fever, sweats or chills Eyes: No diplopia, no worsening or blurred vision ENT: normal hearing, no trouble swallowing Respiratory: No cough, sputum, dyspnea at rest or on exertion Cardiovascular: No chest pain, tightness or palpitations Abdomen: No pain, nausea, vomiting, diarrhea or constipation Musculoskeletal: No joint pain, calf pain, swelling Neurologic: No weakness, numbness/tingling, or balance problems Psychiatric: No anxiety or depression Skin: No rash or itch Physical Exam Physical Exam: General: awake, alert, no apparent distress, sitting in bedside chair Head: Normocephalic, atraumatic ENT: PERRL, EOMI, no pharyngeal exudate, mucous membranes moist Chest: Clear to auscultation, on room air, no adventitious breath sounds Cardiac: Regular rate and rhythm, no murmur, no JVD, normal peripheral pulses, good capillary refill Abdominal: NABS x 4 quadrants, soft, nondistended, nontender to palpation, no rebound or guarding Extremities: RLE with tiffany stocking, ROBERTO, ERVIN drain in place, minimal peripheral e rosangela. LLE with TIFFANY in place, minimal to no peripheral edema. Otherwise, normal inspection, no erythema, calfs nontender to palpation Psych: Normal mood and affect Neuro: AAO x 3, strength intact bilaterally and rated 5/5, no motor deficits, speech is clear, no peripheral sensory deficits Results & Data Results & Data ([facility]) Vital Signs (Past 12 Hours) Vital Signs Temp Pulse Pulse Resp BP Pulse Ox O2 Del Method 11/20/22 08:45 95 Room Air 11/20/22 08:00 Room Air 11/20/22 07:53 36.3 C L 58 L 20 150/68 H 91 Room Air 11/20/22 02:20 36.4 C L 55 L 20 168/79 H 94 Room Air
--- NOTE | 2022-11-20 10:53 | Orthopedic Progress Note ---
Date of Service November 20, 2022 Assessment & Plan (1) Arthritis of right knee: Plan: Postop day 1 status post right total knee arthroplasty PT/OT protocols. Progressing well. DVT prophylaxis-apixaban 5 mg p.o. twice daily, SCDs, TIFFANY maldonado Pain management as written CKD-creatinine 1.49 this morning. I have spoken to [facility] service. They have seen her this morning and feels she is stable for discharge Discharge planning-patient is planning for home health services upon discharge Admission and Anticipated Discharge Date Admission Date: November 19, 2022 Subjective Postop day 1 Patient sitting in her chair at the bedside. Patient states she has undergone OT and PT protocols. She states that it went well. Pain is controlled. He is not having any shortness of breath, chest pain, lightheadedness. She is hoping to go home today. Physical Exam Physical Exam: Dressings are intact and dry. She has some mild drainage noted on the lower aspect of her dressing likely from her Hemovac. Calves are soft and nontender. Neurovascular intact. Toes are mobile. She has good dorsiflexion and plantarflexion of the right foot. Hemovac drainage was 50 mL from the previous shift. Results & Data ([facility]) Vital Signs (Past 12 Hours) Vital Signs Temp Pulse Pulse Resp BP Pulse Ox O2 Del Method 11/20/22 08:45 95 Room Air 11/20/22 08:00 Room Air 11/20/22 07:53 36.3 C L 58 L 20 150/68 H 91 Room Air 11/20/22 02:20 36.4 C L 55 L 20 168/79 H 94 Room Air Laboratory Results Laboratory Results WBC 13.80 K/ul (4.8-10.8) H 11/20/22 06:13 RBC 3.73 M/uL (3.93-5.22) L 11/20/22 06:13 Hgb 11.7 g/dl (12.0-16.0) L 11/20/22 06:13 Hct 33.8 % (34.1-44.9) L 11/20/22 06:13 MCV 90.6 fL (80.0-100.0) 11/20/22 06:13 MCH 31.4 pg (25.0-34.0) 11/20/22 06:13 MCHC 34.6 g/dL (32.0-36.0) 11/20/22 06:13 RDW Std Deviation 41.4 fL (36.4-46.3) 11/20/22 06:13 RDW Coeff of [place] 12.4 % (11.5-14.5) 11/20/22 06:13 Plt Count 189 K/uL (130-400) 11/20/22 06:13 MPV 11.3 fL (9.4-12.3) 11/20/22 06:13 PT 11.9 Seconds (9.0-12.0) 11/19/22 05:22 INR 1.1 (0.9-1.1) 11/19/22 05:22 APTT 31.7 Seconds (21.0-31.0) H 11/19/22 05:22 PTT Ratio 1.2 11/19/22 05:22 Sodium 131 mmol/L (136-145) L 11/20/22 06:13 Potassium 4.1 mmol/L (3.5-5.1) 11/20/22 06:13 Chloride 100 mmol/L (98-107) 11/20/22 06:13 Carbon Dioxide 26 mmol/L (21-32) 11/20/22 06:13 Anion Gap 5 (3-11) 11/20/22 06:13 BUN 31 mg/dl (6-23) H 11/20/22 06:13 Creatinine 1.49 mg/dl (0.6-1.2) H 11/20/22 06:13 Est Cr Clr Drug Dosing 25.6 ml/min 11/20/22 06:13 Est GFR ( Amer) 37.8 ml/min 11/20/22 06:13 Est GFR (Non-Af Amer) 32.6 ml/min 11/20/22 06:13 BUN/Creatinine Ratio 20.8 (10-20) H 11/20/22 06:13 Glucose 123 mg/dl (70-99(Fasting)) H 11/20/22 06:13 Calcium 8.9 mg/dl (8.5-10.1) 11/20/22 06:13 Magnesium 1.9 mg/dl (1.7-2.4) 11/19/22 11:26 SARS-CoV-2, RNA, NAAT NEGATIVE (NEGATIVE) 11/19/22 Unknown Blood Type O Positive 11/19/22 05:22 Antibody Screen NEGATIVE 11/19/22 05:22 Impressions Knee X-Ray 11/19/22 09:30 XR knee RT 1 or 2V routine CLINICAL HISTORY: Surgical Post Op TECHNIQUE: 2 views of the right knee were obtained. Comparison: None available at the time of this dictation. FINDINGS: Patient is status post total knee arthroplasty with expected postsurgical changes including soft tissue swelling and subcutaneous emphysema. No periarticular lucency or hardware fracture is seen. IMPRESSION: Expected postoperative appearance status post placement of total knee arthroplasty. ACT 112: Negative or not required by law. Electronically signed by: Eladio Carroll M.D. 11/19/2022 11:30 AM
--- NOTE | 2022-11-20 11:18 | Hospitalist Progress Note ---
Date of Service November 20, 2022 Assessment & Plan (1) Status post right knee replacement: Plan: -POD #1 - Pain management, bowel regimen and DVT ppx per the primary team - PT/OT consults, pt is unsure if planning on outpatient therapy, plans to go home with her sister who will live with her and help postoperative - Follow am CBC to monitor for acute blood loss, hemoglobin 11.7, stable -History of chronic anemia is at baseline (2) Atrial fibrillation: (3) CHF (congestive heart failure): (4) Valvular heart disease: (5) CAD (coronary artery disease): (6) HTN (hypertension): (7) HLD (hyperlipidemia): Plan: -Follows with cardiology, Dr. Low as outpatient, follows with [facility] as outpatient -Carvedilol 37.5 every morning and 25 every afternoon should be reduced as she has been borderline low heart rate throughout her admission here with heart rate in the 50s, highest is 58. Would recommend that she is discharged on 25 mg BID and followed up by her PCP/cardiology within the next 1 to 2 weeks. Nurse navigator has confirmed that we will fax documents to PCP. -Continue Eliquis, Imdur, amiodarone, and amiloride. Lisinopril has been on hold, hold x1 more day (resume on 11/22/2022 due to slightly bumped creatinine) -Hemoglobin is stable at 11.7, same as compared to 1 month ago preoperatively -Lasix is resumed, there was concern for possible volume overload however he is she is actually net negative -70 mL this morning. Strict I's and O's, weight is the same upon review of chart (8) CKD (chronic kidney disease), stage III: Plan: -Creatinine of 1.49 today, baseline of 1.3-1.4 -Continue to hold lisinopril x1 more day -Received ultrasound-guided fluoroscopy with IV peripheral line placement, did not receive intraoperative contrast which would have bumped her creatinine DVT PPx: - teds, scds, Eliquis CODE: Full code Dispo: From home, likely to remain in the hospital x 1-2 days. Thank you for involving us in the care of Ms. Landis. Please do not hesitate to call with questions or concerns. At this time medicine service will follow along. Admission and Anticipated Discharge Date Admission Date: November 19, 2022 Supervising Physician Co-Signing Physician Notes I have seen and examined the patient and have discussed the case with the provider above. I agree with the assessment and plan as stated. 82 yo F doing very well post operatively after right knee surgery. Her pain is well managed and she will be on Eliquis for DVT prophylaxis. Cont with plan for coreg change as above. My physical exam reveals a WNWD female in NAD with clear lungs to auscultation, cardiac auscultation revealing S1/2 heard without m/g/r. She is euvolemic with no gross focal neuro deficits and is mentating clearly. She verbalized understanding of the medication changes and followup as advised. Cont additional activity restrictions, wound care and follow-up per surgery. Thank you for this consultation. DO Gonzalo Millan This is an 82-year-old female with PMHx of chronic A. fib on Eliquis, CHF, nonischemic cardiomyopathy, HFrEF (LVEF of 35-40%, grade II diastolic dysfunction, mod-severe mitral regurgitation), history of SSS status post pacemaker insertion, tricuspid regurg, anemia, CKD stage III. The patient presented on 11/19 for elective right total knee arthroplasty by Dr. Rebollar. The patient was seen while she was actively participating with PT in the room. She has just gotten done walking around the vargas x1 use the bathroom without difficulty per PT. Pain is well controlled. She was able to eat breakfast without any difficulty. Last bowel movement was 3 days ago. No issues with urination. Reports that she was somewhat nauseous last evening after surgery but this has resolved. She denies any issues with shortness of breath or chest pain or swelling in lower extremities or fingers. Lives at home by herself but has a sister who is coming to live with her after she goes home for a while post surgery. When asking about outpatient physical therapy, she says that she is not interested in participating in it, and thinks she will be able to manage herself at home. Denies any other acute complaints. Review of Systems Review of Systems: Constitutional: No fever, sweats or chills Eyes: No diplopia, no worsening or blurred vision ENT: normal hearing, no trouble swallowing Respiratory: No cough, sputum, dyspnea at rest or on exertion Cardiovascular: No chest pain, tightness or palpitations Abdomen: No pain, nausea, vomiting, diarrhea or constipation Musculoskeletal: No joint pain, calf pain, swelling Neurologic: No weakness, numbness/tingling, or balance problems Psychiatric: No anxiety or depression Skin: No rash or itch Physical Exam Physical Exam: General: awake, alert, no apparent distress Head: Normocephalic, atraumatic ENT: PERRL, EOMI, no pharyngeal exudate, mucous membranes moist Chest: Clear to auscultation, on room air, no adventitious breath sounds Cardiac: Regular rate and rhythm, no murmur, no JVD, normal peripheral pulses, good capillary refill Abdominal: NABS x 4 quadrants, soft, nondistended, nontender to palpation, no rebound or guarding Extremities: RLE with teds, Miguel Ángel, ERVIN drain in place, no to minimal peripheral edema. Otherwise normal inspection, no peripheral edema or erythema, calfs nontender to palpation Psych: Normal mood and affect Neuro: AAO x 3, strength intact bilaterally and rated 5/5, no motor deficits, speech is clear, no peripheral sensory deficits Results & Data Results & Data ([facility]) Vital Signs (Past 12 Hours) Vital Signs Temp Pulse Pulse Resp BP Pulse Ox O2 Del Method 11/20/22 08:45 95 Room Air 11/20/22 08:00 Room Air 11/20/22 07:53 36.3 C L 58 L 20 150/68 H 91 Room Air 11/20/22 02:20 36.4 C L 55 L 20 168/79 H 94 Room Air Laboratory Results Short CBC 11/20/22 Range/Units 06:13 WBC 13.80 H (4.8-10.8) K/ul Hgb 11.7 L (12.0-16.0) g/dl Hct 33.8 L (34.1-44.9) % Plt Count 189 (130-400) K/uL BMP 11/20/22 06:13 Sodium 131 L Potassium 4.1 Chloride 100 Carbon Dioxide 26 BUN 31 H Creatinine 1.49 H Glucose 123 H Calcium 8.9 Medications Administered Current Inpatient Medications Acetaminophen (Acetaminophen 500 Mg Tab) 1,000 mg PO Q8 [facility] Stop: 12/19/22 13:59 Last Admin: 11/20/22 06:40 Dose: 1,000 mg Amiloride HCl (Amiloride Hcl 5 Mg Tab) 5 mg PO PM [facility] Stop: 12/19/22 20:59 Last Admin: 11/19/22 21:06 Dose: 5 mg Amiodarone HCl (Amiodarone 200 Mg Tab) 200 mg PO BID [facility] Stop: 12/19/22 20:59 Last Admin: 11/20/22 09:02 Dose: 200 mg Apixaban (Apixaban 5 Mg Tablet) 5 mg PO BID [facility] Stop: 12/20/22 08:59 Last Admin: 11/20/22 09:01 Dose: 5 mg Bisacodyl (Bisacodyl 10 Mg Supp) 10 mg HI DAILY PRN PRN Reason: Constipation Stop: 12/19/22 10:20 Carvedilol (Carvedilol 12.5 Mg Tab) 12.5 mg PO QAM [facility] Stop: 12/20/22 08:59 Last Admin: 11/20/22 09:02 Dose: 12.5 mg Carvedilol (Carvedilol 25 Mg Tab) 25 mg PO BID [facility] Stop: 12/19/22 20:59 Last Admin: 11/20/22 09:02 Dose: 25 mg Clonidine HCl (Clonidine Hcl 0.1 Mg Tab) 0.1 mg PO DAILY PRN PRN Reason: SBP > 170 Stop: 12/19/22 10:20 Diphenhydramine HCl (Diphenhydramine Capsule 25 Mg Cap) 25 mg PO Q8H PRN PRN Reason: Itching Stop: 12/19/22 10:20 Docusate Sodium (Docusate Sodium 100 Mg Cap) 100 mg PO BID [facility] Stop: 12/19/22 20:59 Last Admin: 11/20/22 09:02 Dose: 100 mg Famotidine (Famotidine 20 Mg Tab) 20 mg PO DAILY [facility] Stop: 12/20/22 08:59 Last Admin: 11/20/22 09:02 Dose: 20 mg Furosemide (Furosemide 20 Mg Tab) 20 mg PO QAM [facility] Stop: 12/21/22 08:59 Hydromorphone HCl (Hydromorphone Inj 0.5 Mg/0.5 Ml Syr) 0.5 mg IV Q4H PRN PRN Reason: Pain or Pre PT Stop: 12/03/22 10:20 Isosorbide Mononitrate (Isosorbide [place] Extended Rel 30 Mg Tabcr) 30 mg PO QAM [facility] Stop: 12/20/22 08:59 Last Admin: 11/20/22 09:02 Dose: 30 mg Lisinopril (Lisinopril 40 Mg Tab) 40 mg PO [facility] Stop: 12/20/22 08:59 Magnesium Hydroxide (Magnesium Hydroxide Susp 30 Ml Udc) 30 ml PO Q6H PRN PRN Reason: Constipation Stop: 12/19/22 10:20 Metoclopramide HCl (Metoclopramide Hcl Inj 5 Mg/Ml 2 Ml Vial) 10 mg IV Q6H PRN PRN Reason: Nausea And Vomiting Stop: 12/19/22 10:20 Multivitamins (Multivitamin Tab) 1 tab PO [facility] Stop: 12/20/22 08:59 Last Admin: 11/20/22 09:02 Dose: 1 tab Naloxone HCl (Naloxone Hcl 0.4 Mg/1 Ml Vial/Carp) 0.1 mg IV Q5M PRN PRN Reason: Oversedation/Resp Depression Stop: 12/19/22 10:20 Ondansetron HCl (Ondansetron Inj 2 Mg/Ml 2 Ml Vial) 4 mg IV Q6H PRN PRN Reason: Nausea And Vomiting Stop: 12/19/22 10:20 Last Admin: 11/19/22 17:11 Dose: 4 mg Oxycodone HCl (Oxycodone Hcl Ir 5 Mg Tab (Immediate Release)) 5 - 10 mg PO Q4H PRN PRN Reason: Pain or Pre PT Stop: 12/03/22 10:20 Potassium Chloride (Potassium Chloride 10 Meq Tabcr) 10 meq PO [facility] Stop: 12/20/22 08:59 Last Admin: 11/20/22 09:03 Dose: 10 meq Pravastatin Sodium (Pravastatin Sod 20 Mg Tab) 20 mg PO [id number] [facility] Stop: 12/20/22 08:59 Last Admin: 11/20/22 09:03 Dose: 20 mg Sennosides (Senna 8.6 Mg Tab) 17.2 mg PO [facility] Stop: 12/19/22 20:59 Last Admin: 11/19/22 21:07 Dose: 17.2 mg Terazosin HCl (Terazosin Hcl 5 Mg Cap) 5 mg PO [facility] Stop: 12/19/22 20:59 Last Admin: 11/19/22 21:05 Dose: 5 mg
--- NOTE | 2022-11-20 16:22 | Discharge Summary ---
Date of Service date of discharge: November 20, 2022 date of admission: 11/19/22 Principal Diagnosis right knee arthritis Discharge Data Allergies Allergy/AdvReac Type Severity Reaction Status Date / Time Penicillins Allergy Hives Verified 11/19/22 05:38 spironolactone Allergy blisters Verified 11/19/22 05:38 [From Aldactone] Sulfa (Sulfonamide Allergy Rash Verified 11/19/22 05:38 Antibiotics) Consultations 11/19/22 10:21 Consult Hospitalist Routine Procedures Performed Operation Date: 11/19/22 07:15 Actual Procedures p Right Total Knee Arthroplasty(Right) - Mannie Lima DO Ordered Studies 11/19/22 05:00 US - OR guided needle placemen Routine Hospital Course (1) Arthritis of right knee: Postop day 1 status post right total knee arthroplasty PT/OT protocols. Progressing well. DVT prophylaxis-apixaban 5 mg p.o. twice daily, SCDsTIFFANY Pain management as written CKD-creatinine 1.49 this morning. [facility]. [facility] and feels she is stable for discharge Discharge planning-patient is planning for home health services upon discharge Total Time Total Time Spent Total Time Spent (In Minutes): 20 Discharge Plan Discharge Items Patient Disposition: Home - Home Health Services Reason For Visit: POST OP TKA Discharge Diagnosis: right total knee replacement Activity: Per Instructions section Lifting: Wait until after follow-up appointment Weightbearing Comment: WBAT with walker Non-emergency contact: Surgeon Call non-emergency contact if: you have any medication questions, your temperature is above 101, your wound has increased redness, your wound has increased drainage and your wound pain has increased Follow-up/Referrals: Markell Andres M.D. [Primary Care Provider] - Diet: Regular Addtl Attending Provider Instructions: Please hold your lisinopril until 11/22/2022, you may then resume taking your lisinopril Friday morning. Also, reduce your carvedilol to 25 mg p.o. twice daily. Please follow up with your Hydrography Teacher in 1 to 2 weeks for a recheck of your medications. ACTIVITY RECOMMENDATIONS: SELF CARE INSTRUCTIONS AFTER TOTAL KNEE REPLACEMENT A. You may need to continue a physical therapy program after discharge from the hospital. There are several options available to you. Your doctor will assist you in selecting the best one for you. 1. An out-patient facility 2 to 3 times a week for therapy or home therapy. 2. Continue working on all exercises taught to you in the hospital. Your goals should be to increase bending of your knee to 90 degrees and beyond and to fully straighten your knee. B. You may progress at your own pace from walking with a walker or crutches to a cane; then to no assistive devices. C. Make walking a part of your daily routine. Be up as much as comfortable with rest periods throughout the day. Rest with leg elevation is very important. Use the ice wrap frequently for the first 3-4 weeks. D. There are no restrictions on activities. You may ride in a car, shop, participate in ict help desk officer and all social activities. E. Wear the long elastic stockings (TIFFANY hose) 20 hours a day for 2 weeks after surgery. They can be removed several times a day for laundering and for a bath. F. You may shower, no tub baths until cleared by your doctor. SPECIAL CARE INSTRUCTIONS: VERY IMPORTANT TO READ AND REVIEW A. There are a few signs you need to watch for after you are home. Call [facility] if you notice any of the followin. Increased severe knee pain. Some pain is expected especially when you exercise. 2. Increased swelling in your leg or knee; pain or swelling of the calf muscle in either lower leg. 3. Any fluid drainage from the incision. 4. Shortness of breath or chest pain. B. Please call [facility] at if you have any concerns or questions about your operation or recovery. The doctor or his nurse will return your call promptly. C. You must take antibiotics before dental work, bladder, bowel or other surgery. Your doctor will provide you with a permanent care to carry describing this precaution. IMPORTANT: * CONTINUE YOUR APIXABAN TWICE DAILY. . * CALL IF INCREASED PAIN, REDNESS, DRAINAGE OR FEVER GREATER THAT 101. * WEAR TIFFANY HOSE 20 HOURS PER DAY FOR 2 WEEKS. * DRESSING INSTRUCTIONS * JAMES Dressing- This is a large suction dressing covering your incision. This will help pull any excess drainage from the wound and allow your incision to heal properly. You may shower with this if you can keep the unit outside of the shower. If any bleeding or leakage is noted please call your doctor's office. This will remain on your incision for 7 days and then should be removed. This can be done yourself or by the home nursing staff if applicable. The entire unit is disposable once removed. Once removed, keep incision clean and dry. If redness or drainage is noted, please call your surgeon. ONCE JAMES IS REMOVED, FOLLOW THESE INSTRUCTIONS: DERMABOND Prineo- This is a mesh tape dressing that is covered with glue. It should remain in place until the incision is properly healed, usually 10-14 days. This dressing is designed to naturally slough off. You may trim the excess mesh tape as it peels off. Incision may be briefly wet in a shower. Dry immediately by blotting with a clean, dry towel. Do not bath or swim until instructed by your doctor. Do not scratch, rub, or pick at the dressing. Do not apply any topical ointments or lotions until dressing is completely removed and/or instructed by your doctor. There may be a small piece of suture material at one end of your incision. Do not pull or trim this. If it is bothersome or catching on clothing, you may cover it with a band-aid. IF INCISION IS LEAKING THROUGH DRESSING, CALL THE OFFICE . FOLLOW UP VISIT: If appointment is not already scheduled: Please call [facility] to make a follow-up appointment for 2 weeks after your surgery at . Stand-Alone Forms: My [facility], Pain - Opioid Pain Management Medications and DC Order Prescriptions: New acetaminophen [Tylenol Extra Strength] 500 mg Tablet 1,000 mg PO Q8 21 Days Qty: 126 0RF oxycodone 5 mg Tablet 5 - 10 mg PO Q6H PRN (Reason: pain) Qty: 30 0RF Rx Instructions: ongoing therapy, supervising dr ekta lima. max 6 tabs in 24 hours docusate sodium 100 mg Capsule 100 mg PO BID 10 Days Qty: 20 0RF clindamycin HCl 300 mg capsule 300 mg PO TID 7 Days Qty: 21 0RF Continued terazosin 5 mg Capsule 5 mg PO HS carvedilol 25 mg Tablet 25 mg PO BID Rx Instructions: must administer with a meal/food isosorbide mononitrate 30 mg Tablet Extended Release 24 Hr 30 mg PO QAM potassium chloride 10 mEq Tablet Extended Release 10 meq PO QAM amiloride 5 mg Tablet 5 mg PO PM furosemide 20 mg Tablet 20 mg PO QAM lisinopril 40 mg Tablet 40 mg PO QAM multivitamin Tablet 1 tab PO QAM amiodarone 200 mg Tablet 200 mg PO BID pravastatin 20 mg Tablet 20 mg PO 3XWK clonidine HCl 0.1 mg Tablet 0.1 mg PO DAILY PRN (Reason: SBP > 170) Eliquis 5 mg Tablet 5 mg PO BID Qty: 60 1RF Discontinued tramadol 50 mg Tablet 50 mg PO TID PRN (Reason: Pain) Fish Oil-[place] -3 Fatty Acids 1 cap PO DAILY Rx Instructions: 3600-1,200 mg carvedilol 12.5 mg tablet 12.5 mg PO QAM Qty: 30 1RF Rx Instructions: must administer with a meal/food. Discharge Orders: Discharge Order (Routine); Ordered 11/20/22 Ordered By: Mert Scott Admission Data Admit Date/Time: 11/19/22 09:30 Attending Provider: Mannie Lima Admit Provider: Mannie Lima Primary Care Provider: Markell Andres Other Providers: Krys Millan ; [facility] Other Interventions: Discharge Summary Assessment (RN) Last Done: 11/20/22 11:17
[2022-11-20] MEDS ORDERED: aMILoride HCL 5 MG TAB PO SCH (21:00)
[2022-11-21] MEDS ORDERED: FUROSEMIDE 20 MG TAB PO SCH (09:00)
== END 2022-11-20 14:27 | disposition home health service (06) ==
LOC: 3E 05:03 → ASU 05:03